=== PATIENT | female | born 1945 | race Caucasian/White ===

== ENCOUNTER 2016-12-26 12:36 | Day surgery (SDC) | payer MEDICARE ==
[2016-12-20 14:54] VITALS: BMI 32.5
[~2016-12-26 12:36] MED LIST: LACTATED RINGERS 1,000 ML IV SCH
[2016-12-26 13:42] VITALS: RESP 18; TEMP 98.3
[2016-12-26] MEDS ORDERED: LIDOCAINE 1% 20 ML VIAL (10MG/ML) FOR IV START INTRADERMA ONE (14:05)
[2016-12-26] MEDS: PHENYLEPHRINE 10% OPHTH DROPS 5 ML BTL OP ONE ×3 (14:13→14:35)
[2016-12-26] MEDS: CYCLOPENTOLATE 1% OPHTH SOLN 2 ML BTL OP ONE ×3 (14:16→14:38)
[2016-12-26] MEDS: FLURBIPROFEN 0.03% OPHTH DROPS 2.5 ML BTL OP ONE ×3 (14:19→14:41)
[2016-12-26] MEDS ORDERED: PROPOFOL 10 MG/ML 20 ML VIAL IV ONE (14:54)
[2016-12-26] MEDS ORDERED: MIDAZOLAM 2 MG/2 ML VIAL ONE (14:54)
[2016-12-26] MEDS ORDERED: EPINEPHrine (PF) 0.5 ML in BALANCED SALT IRRIG SOLN COMB2 500 ML IRRIGATION ONE (14:58)
[2016-12-26] MEDS ORDERED: BALANCED SALT IRRIG SOLN COMB2 15 ML IRRIG.SOLN IRRIGATION ONE (15:01)
[2016-12-26] MEDS ORDERED: HYALURONATE SODIUM INTRAOCULAR 1 EACH SYRINGE (10MG/ML) INTRAOCULA ONE (15:01)
--- NOTE | 2016-12-26 15:10 | P.OP ---
Date of Procedure: 12/26/16 Preoperative Diagnosis: Postoperative Diagnosis: Procedure(s) Performed: PREOPERATIVE DIAGNOSIS: Cataract, left eye. POSTOPERATIVE DIAGNOSIS: Cataract, left eye. OPERATION: Phacoemulsification cataract, left eye. DESCRIPTION OF PROCEDURE: The patient was taken to the preoperative holding area. Intravenous Propofol was given so as to bring about adequate sedation. The following mixture was given for local anesthesia: 5 mL of 2% lidocaine, 5 mL of 0.75% Marcaine, and 1 mL of Wydase. Approximately 4 mL was injected in the retrobulbar space of the surgical eye. Additional 1 mL was then directed to the temporal area of the surgical eye. This was performed to allow adequate neurological block of the facial muscles. The patient was revived and then taken into the operative room. The patient was prepped and draped in the usual sterile manner for the operative eye. A lid speculum was put into position. The conjunctiva was resected back from the limbus in the 12 o'clock position. Bleeding was controlled with electrocautery. A #69 blade was then used and a half-thickness scleral incision approximately 1-mm posterior to the limbus was made on bare sclera. This was shelved in the clear cornea using a crescent knife. Next a 15-degree blade was used to make a stab incision at the 3 o' clock position at the corneolimbal interface. Keratome blade was then used and the superior wound was extended into the anterior chamber. Viscoelastic was injected into the anterior chamber and to maintain its form. Next, a cystotome was used and a continuous anterior capsulotomy was made without difficulty. Hydrodissection using a blunt cannula and BSS was performed. Phaco probe was then employed and a groove extending from 12 to 6 o'clock in the lens was created. A Dionisio wand was used through the stab incision so as to perform a divide and conquer technique. Next an irrigation aspiration probe was utilized and any residual cortex was removed from the eye. Again, viscoelastic was injected into the anterior chamber. An Hai posterior chamber lens implant was placed in the cartridge and injected into the anterior chamber without difficulty. The NanoPowersey hook was utilized to spin the lens into position and this was again performed without any difficulty. The irrigation and aspiration probe was again employed and any residual viscoelastic was removed from the eye. Then BSS was injected into the limbal stab incision and the anterior chamber re-inflated. The conjunctiva was reapproximated using electrocautery. One drop of 0.25% Timoptic was placed over the corneal along with TobraDex ophthalmic ointment. Two sterile patches and a Alvarado eye shield were taped into position. The patient was transported to the recovery room in stable condition. Implants: Pathology: none sent Condition: stable Disposition: same day Indications for Procedure: Operative Findings: Description of Procedure:
[2016-12-26 15:34] VITALS: BP 131/69; PULSE 91
[2016-12-26] MEDS ORDERED: BUPIVACAINE (PF) 0.75% 5 ML, LIDOCAINE 4% (PF) 5 ML, HYALURONIDASE, HUMAN RECOMB 150 UNIT MISCELLANE ONE ×3 (23:00)
[2016-12-26] MEDS ORDERED: TIMOLOL 0.5% OPHTH SOLN (PF) 0.2 ML DROPERETTE OP ONE (23:00)
[2016-12-26] MEDS ORDERED: GENTAMICIN/PREDNISOL AC OPHTH OINT 3.5GM OPHTHALMIC ONE (23:00)
== END 2016-12-26 16:02 | disposition home or self-care (01) ==
LOC: OR 12:36
PROVIDERS: ATTEND Ophthalmology
DX: H25.12 Age-related nuclear cataract, left eye (principal); H35.369 Drusen (degenerative) of macula, unspecified eye; H04.129 Dry eye syndrome of unspecified lacrimal gland; I10 Essential (primary) hypertension; M10.9 Gout, unspecified; E78.5 Hyperlipidemia, unspecified; M19.90 Unspecified osteoarthritis, unspecified site; Z79.899 Other long term (current) drug therapy; Z79.1 Long term (current) use of non-steroidal anti-inflammatories (NSAID); Z88.2 Allergy status to sulfonamides
CPT/HCPCS: 66984; V2632; J2001; J2250; J3470; J0171; J2704

== ENCOUNTER → 2017-01-30 | Outpatient (CLI) | payer MEDICARE ==
--- NOTE | 2017-01-30 07:54 | US ---
EXAMINATION TYPE: US abdomen complete DATE OF EXAM: 01/30/2017 COMPARISON: NONE CLINICAL HISTORY: R10.11 RT upper quadrant pain. Pt states RUQ pain x 3 weeks EXAM MEASUREMENTS: Liver Length: 20.0 cm Gallbladder Wall: 0.2 cm CBD: 0.5 cm Spleen: 12.2 cm Right Kidney: 10.7 x 4.3 x 4.8 cm Left Kidney: 11.0 x 5.8 x 5.4 cm Pancreas: wnl, tail obscured by overlying bowel gas Liver: Enlarged, heterogeneous with cyst right lobe= 3.4 x 2.8 x 2.6 cm Gallbladder: wnl Evidence for sonographic Hillman's sign: Yes CBD: wnl Spleen: wnl Right Kidney: wnl Left Kidney: wnl Upper IVC: wnl Abd Aorta: wnl, distal portion obscured by overlying bowel gas The liver is somewhat heterogenous and enlarged. Simple appearing cyst is noted within the right hepa tic lobe. The intrahepatic portion of the IVC and proximal abdominal aorta are within normal limits. There is no evidence of cholelithiasis. Common bile duct is unremarkable. The visualized portions of the pancreas are homogenous. The spleen is unremarkable. Kidneys are symmetric and free of hydro nephrosis. No renal lesions are seen. IMPRESSION: 1. Probable fatty liver with underlying fatty hepatic infiltration and simple hepatic cyst.
== END | disposition home or self-care (01) ==
LOC: RADUSWWP 07:26
PROVIDERS: ATTEND Internal Medicine
DX: K76.89 Other specified diseases of liver (principal)
CPT/HCPCS: 76700

== ENCOUNTER → 2017-04-10 | Outpatient (CLI) | payer MEDICARE ==
[2017-04-10 12:11] LABS: EKG EKG PERFORMED
[2017-04-10 12:22] LABS: Basophils # (A) 0.1 k/uL (0-0.2); Basophils % (A) 1 %; CH 32.8; CHCM 34.3; Eosinophils # (A) 0.3 k/uL (0-0.7); Eosinophils % (A) 5 %; HCT 42.6 % (34.0-46.0); HDW 3.16; Luc # (Auto) 0.28; Luc % (Auto) 4; Lymphocytes % (A) 31 %; MCH 31.7 pg (25.0-35.0); MCHC 32.9 g/dL (31.0-37.0); MCV 96.4 fL (80.0-100.0); Mean Platelet Volume 6.9; Monocytes # (A) 0.5 k/uL (0-1.0); Monocytes % (A) 8 %; Neutrophils # (A) 3.2 k/uL (1.3-7.7); Neutrophils % (A) 51 %; RBC 4.42 m/uL (3.80-5.40); RDW 13.6 % (11.5-15.5); WBC 6.4 k/uL (3.8-10.6)
[2017-04-10 12:58] LABS: Anion Gap 12 mmol/L; Carbon Dioxide 25 mmol/L (22-30); Chloride 104 mmol/L (98-107); Potassium 4.7 mmol/L (3.5-5.1); Sodium 141 mmol/L (137-145)
== END | disposition home or self-care (01) ==
LOC: LABPAT 12:02
PROVIDERS: ATTEND Orthopaedic Surgery
DX: Z01.810 Encounter for preprocedural cardiovascular examination (principal); Z01.812 Encounter for preprocedural laboratory examination; G56.02 Carpal tunnel syndrome, left upper limb
CPT/HCPCS: 36415; 80051; 85025; 93005

== ENCOUNTER 2017-04-25 11:33 | Day surgery (SDC) | payer MEDICARE ==
[2017-04-20 15:30] VITALS: BMI 32.5
--- NOTE | 2017-04-24 12:28 | HP ---
HISTORY AND PHYSICAL REASON FOR ADMISSION: Surgery is 04/25/2017 HISTORY OF PRESENT ILLNESS: Sandy Lux is a 71-year-old patient seen with symptomatic left carpal tunnel syndrome. After options regarding treatment were discussed with her, she elected to proceed with decompression left median nerve. Consent was obtained. PAST MEDICAL HISTORY: Hypertension, hyperlipidemia, gout and anxiety. PAST SURGICAL HISTORY: Right knee arthroscopy. MEDICATIONS: Lisinopril, simvastatin, Xanax, Zyloprim. ALLERGIES: SULFA. SOCIAL HISTORY: Patient denies current tobacco use. PHYSICAL EXAMINATION: Physical evaluation of the left hand there is good range of motion present of both the wrist and the digits. 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 There is a positive carpal compression, carpal Tinel's causing numbness and tingling into the median nerve distribution. There is a good radial pulse is present. There is good perfusion distally. X-RAYS: Radiographs of the left wrist reveals some osteoarthritic changes. An EMG of left upper extremity revealed carpal tunnel syndrome. IMPRESSION: Left carpal tunnel syndrome. PLAN: Decompression left median nerve. Surgery is 04/25/2017. MMODL / IJN: [id number] /
[~2017-04-25 11:33] MED LIST changes: +DEXAMETHASONE SOD PHOSPHATE 10 MG/ML 1 ML VIAL IV ONE; +HYDROmorphone 0.5 MG/0.5 ML SYRINGE IVP PRN; +ONDANSETRON 4 MG/2 ML VIAL IVP ONE; +ceFAZolin IN SWFI 2 GM/20 ML SYRINGE IVP ONE
[2017-04-25] MEDS ORDERED: LIDOCAINE 1% 20 ML VIAL (10MG/ML) FOR IV START INTRADERMA ONE (12:00)
[2017-04-25 12:03] VITALS: RESP 16; TEMP 98.2
[2017-04-25] MEDS ORDERED: PROPOFOL 10 MG/ML 20 ML VIAL IV ONE (12:51)
[2017-04-25] MEDS ORDERED: MIDAZOLAM 2 MG/2 ML VIAL ONE (12:51)
[2017-04-25] MEDS ORDERED: fentaNYL (PF) 50 MCG/ML 2 ML AMP ONE (12:51)
[2017-04-25] MEDS ORDERED: SODIUM CHLORIDE 0.9% 50 ML with ceFAZolin 2,000 MG IV ONE ×2 (12:55)
[2017-04-25] MEDS ORDERED: BUPIVACAINE (PF) 0.25% 30 ML VIAL SQ ONE ×2 (13:03)
--- NOTE | 2017-04-25 13:20 | P.OP ---
Date of Procedure: 04/25/17 Preoperative Diagnosis: Left carpal tunnel syndrome Postoperative Diagnosis: Left carpal tunnel syndrome Procedure(s) Performed: Decompression left median nerve Implants: None Anesthesia: MAC, local Surgeon: Isaiah Bai Estimated Blood Loss (ml): 0 Pathology: none sent Condition: stable Disposition: PACU Indications for Procedure: 71-year-old patient seen with left carpal tunnel syndrome. After we discussed treatment options, she elected to proceed with decompression left median nerve. Operative Findings: see description of procedure Description of Procedure: The patient was taken to the operative suite. The patient underwent IV sedation by the department of anesthesia. A well-padded tourniquet placed proximal left upper extremity. The left upper extremity was prepped and draped in the normal sterile orthopedic fashion. The patient was given preoperative IV antibiotics. The extremity was elevated and tourniquet insufflated to 250. I infiltrated the proposed incision site with 10 mL quarter percent plain Marcaine. When sufficient local analgesia was noted I made an incision being at the distal volar wrist crease extending distally approximately 3 cm in line with the fourth metacarpal sharply through skin. Dissection was taken down through the palmar fascia to the transverse carpal ligament. I now incised the transverse carpal ligament. I completed the release proximally and distally with blunt Metzenbaums. There was complete release of the transverse carpal ligament and good decompression of the nerve. We had good hemostasis. The skin margins were approximated nylon suture. Sterile dressings were applied followed by loose web bone Mathew bandage. The tourniquet was released with immediate capillary refill of all digits noted. Patient was awakened, transferred to recovery stable condition.
[2017-04-25 14:13] VITALS: BP 129/79; PULSE 102
== END 2017-04-25 14:29 | disposition home or self-care (01) ==
LOC: OR 11:33
PROVIDERS: ATTEND Orthopaedic Surgery
DX: G56.02 Carpal tunnel syndrome, left upper limb (principal); I10 Essential (primary) hypertension; E78.5 Hyperlipidemia, unspecified; G47.33 Obstructive sleep apnea (adult) (pediatric); F41.9 Anxiety disorder, unspecified; F39 Unspecified mood [affective] disorder; M10.9 Gout, unspecified; Z79.899 Other long term (current) drug therapy; Z88.2 Allergy status to sulfonamides; Z87.891 Personal history of nicotine dependence
CPT/HCPCS: 64721; J2250; J1100; J2405; J0690; J3010; J2704

== ENCOUNTER 2018-02-20 10:06 | Emergency (ER) | payer MEDICARE ==
--- NOTE | 2018-02-20 11:07 | ED ---
Chest Pain HPI - General Chief Complaint: Chest Pain Stated Complaint: Chest pain Time Seen by Provider: 02/20/18 10:19 Source: patient, RN notes reviewed Mode of arrival: ambulatory Limitations: no limitations - History of Present Illness Initial Comments: This is a 72-year-old female who presents with complaints of chest pain. She states it feels crampy left-sided chest radiates to her back. He states she has stress test on February 07 which was bad "". She was referred to cardiology she states she came in today because of back pain and chest pain. She does states she tripped and fell yesterday but does not believe this is secondary to that the. Currently she is pain-free but it does get moderate to severe when it does come on. Not associated with deep breathing cough fevers chills sweats or other symptoms MD Complaint: chest pain - Related Data Home Medications Medication Instructions Recorded Confirmed ALPRAZolam [Xanax] 0.125 - 0.25 mg PO BID PRN 12/20/16 02/20/18 Allopurinol [Zyloprim] 150 mg PO DAILY 12/20/16 02/20/18 Lisinopril [Zestril] 10 mg PO DAILY 12/20/16 02/20/18 Simvastatin [Zocor] 20 mg PO Q48H 12/20/16 02/20/18 Aspirin EC [Ecotrin Low Dose] 81 mg PO DAILY PRN 02/20/18 02/20/18 Vitamin E 100 unit PO DAILY 02/20/18 02/20/18 Allergies Allergy/AdvReac Type Severity Reaction Status Date / Time Sulfa (Sulfonamide Allergy Rash/Hives Verified 02/20/18 10:33 Antibiotics) Review of Systems ROS Statement: Those systems with pertinent positive or pertinent negative responses have been documented in the HPI. ROS Other: All systems not noted in ROS Statement are negative. EKG Findings - EKG Results: EKG: interpreted by ERVIN, sinus rhythm (EKG shows normal sinus rhythm a 96. Interval 142 QRS 80 QT since QTC 344/[address]-T wave changes) Past Medical History Past Medical History: Hyperlipidemia, Hypertension, Osteoarthritis (OA) History of Any Multi-Drug Resistant Organisms: None Reported Past Surgical History: Tonsillectomy Additional Past Surgical History / Comment(s): colonoscopy Past Anesthesia/Blood Transfusion Reactions: No Reported Reaction Past Psychological History: Anxiety Smoking Status: Former smoker Past Alcohol Use History: None Reported Past Drug Use History: None Reported - Past Family History Mother Family Medical History: No Reported History Father Family Medical History: Cancer General Exam - General Exam Comments Initial Comments: This is a well-developed well-nourished awake alert oriented 3 female Limitations: no limitations General appearance: alert, in no apparent distress Head exam: Present: atraumatic, normocephalic, normal inspection Eye exam: Present: normal appearance, PERRL, EOMI. Absent: scleral icterus, conjunctival injection, periorbital swelling ENT exam: Present: normal exam, mucous membranes moist Neck exam: Present: normal inspection. Absent: tenderness, meningismus, lymphadenopathy Respiratory exam: Present: normal lung sounds bilaterally. Absent: respiratory distress, wheezes, rales, rhonchi, stridor, chest wall tenderness Cardiovascular Exam: Present: regular rate, normal rhythm, normal heart sounds. Absent: systolic murmur, diastolic murmur, rubs, gallop, clicks GI/Abdominal exam: Present: soft, normal bowel sounds. Absent: distended, tenderness, guarding, rebound, rigid Extremities exam: Present: normal inspection, full ROM, normal capillary refill. Absent: tenderness, pedal edema, joint swelling, calf tenderness Back exam: Present: normal inspection Neurological exam: Present: alert, oriented X3, CN II-XII intact Psychiatric exam: Present: normal affect, normal mood Skin exam: Present: warm, dry, intact, normal color. Absent: rash Course Vital Signs 02/20/18 02/20/18 02/20/18 10:11 13:29 15:30 Temperature 98 F 97.7 F Pulse Rate 90 85 90 Respiratory 16 18 18 Rate Blood Pressure 134/70 133/81 150/74 O2 Sat by Pulse 93 L 94 L 100 Oximetry Chest Pain MDM - MDM Imaging shows no acute findings. I did discuss [employer] the patient CAT scan showed no PE symptoms are suspicious for atypical chest pain facial be admitted with cardiology consultation Critical Care Time Critical Care Time: Yes Critical Care Time: 31 minutes of critical care time which includes initial presentation with history physical labs x-rays reevaluation patient response to therapy and several discussed with the patient documentation the above admission orders Disposition Clinical Impression: Atypical chest pain, Unstable angina pectoris Disposition: ADMITTED IP TO THIS HOSP Condition: Stable Referrals: Ciro Smith MD [Primary Care Provider] - 1-2 days
[2018-02-20 11:19] LABS: Basophils % (A) 1 %; Eosinophils # (A) 0.2 k/uL (0-0.7); Eosinophils % (A) 3 %; HCT 42.9 % (34.0-46.0); HGB 14.2 gm/dL (11.4-16.0); Lymphocytes # (A) 1.5 k/uL (1.0-4.8); Lymphocytes % (A) 27 %; MCH 31.4 pg (25.0-35.0); MCHC 33.1 g/dL (31.0-37.0); MCV 94.8 fL (80.0-100.0); Mean Platelet Volume 6.9; Monocytes # (A) 0.4 k/uL (0-1.0); Monocytes % (A) 6 %; Neutrophils # (A) 3.3 k/uL (1.3-7.7); Neutrophils % (A) 59 %; Platelet Count 237 k/uL (150-450); RBC 4.52 m/uL (3.80-5.40); WBC 5.7 k/uL (3.8-10.6)
--- NOTE | 2018-02-20 11:33 | XR ---
EXAMINATION TYPE: XR chest 2V DATE OF EXAM: 02/20/2018 COMPARISON: None HISTORY: 72-year-old female with chest pain TECHNIQUE: Frontal and lateral views FINDINGS: The cardiomediastinal silhouette, aorta, and pulmonary vasculature are within normal limits. Strandy atelectasis lower lungs. Lungs and pleural spaces are clear. IMPRESSION: Strandy lower lung areas of atelectasis. No acute cardiopulmonary process.
[2018-02-20 11:36] LABS: ALT 158 U/L (9-52); AST 112 U/L (14-36); Albumin 4.6 g/dL (3.5-5.0); Alkaline Phosphatase 52 U/L (38-126); Amylase 58 U/L (30-110); Anion Gap 14 mmol/L; Blood Urea Nitrogen 16 mg/dL (7-17); Calcium 10.9 mg/dL (8.4-10.2); Carbon Dioxide 21 mmol/L (22-30); Chloride 105 mmol/L (98-107); Glucose 125 mg/dL (74-99); Lipase 136 U/L (23-300); Magnesium 1.9 mg/dL (1.6-2.3); Potassium 4.1 mmol/L (3.5-5.1); Sodium 140 mmol/L (137-145); Total Bilirubin 0.5 mg/dL (0.2-1.3); Total Protein 8.4 g/dL (6.3-8.2)
[2018-02-20 11:47] LABS: Creatine Kinase 69 U/L (30-135)
[2018-02-20 12:00] LABS: Creatine Kinase MB 0.8 ng/mL (0.0-2.4); Troponin I <0.012 ng/mL (0.000-0.034)
[2018-02-20 12:11] LABS: D-Dimer 0.85 mg/L FEU (<0.60); Partial Thromboplastin Time 22.2 sec (22.0-30.0)
--- NOTE | 2018-02-20 13:27 | CT ---
EXAMINATION TYPE: CT angio chest DATE OF EXAM: 02/20/2018 COMPARISON: Radiograph same day a correlation ultrasound 01/30/2017 HISTORY: 72-year-old female Chest pain TECHNIQUE: Contiguous axial scanning of the chest performed without and with IV Contrast, patient inj ected with 100 mL of Isovue 370. Coronal/sagittal MIP reconstructions performed. CT DLP: 397.7 mGycm Automated exposure control for dose reduction was used. FINDINGS: Possible 1.9 cm nodule in the left lobe of the thyroid gland. The thyroid gland appears somewhat bulk y and enlarged. Nonemergent follow-up thyroid ultrasound. Left subpectoral lymph node measures 1.3 cm, right subpectoral lymph node measures 1.1 cm. Satisfactory opacification of the pulmonary arterial system without evidence for pulmonary embolus. Mild diffuse bronchial wall thickening and mild dependent atelectasis. No consolidation or pleural ef fusion. Additional scattered small mediastinal lymph nodes are present. There is otherwise no thoracic lympha denopathy by CT size criteria. Small hiatal hernia. 3.4 cm hypodense lesion anterior liver compatible with cysts seen on ultrasound. Bones: No osseous destructive process. IMPRESSION: 1. NO EVIDENCE FOR PULMONARY EMBOLUS. 2. MILD DIFFUSE BRONCHIAL WALL THICKENING COULD REPRESENT BRONCHITIS OR CHRONIC ASTHMA. 3. POSSIBLE 1.9 CM NODULE IN THE LEFT LOBE OF THE THYROID GLAND. NONEMERGENT FOLLOW-UP THYROID ULTRAS OUND TO FURTHER EVALUATE. 4. A PROMINENT SUBPECTORAL LYMPH NODE ON EITHER SIDE MEASURING UP TO 1.3 CM PROBABLY REACTIVE/POST IN FLAMMATORY. CORRELATE WITH ROUTINE SCREENING MAMMOGRAPHY. 5. SMALL HIATAL HERNIA.
[2018-02-20 13:31] VITALS: RESP 18
[2018-02-20] MEDS ORDERED: ASPIRIN 81 MG PO PRN (15:50)
[2018-02-20] MEDS ORDERED: ALPRAZolam 0.25 MG TAB PO PRN (15:50)
[2018-02-20 16:01] VITALS: BP 150/74; PULSE 90; TEMP 97.7
--- NOTE | 2018-02-20 16:04 | P.HPIM ---
History of Present Illness H&P Date: 02/20/18 Chief Complaint: Chest pain This is a 72-year-old female patient of Dr. Smith. Patient presented to the emergency room with complaints of chest pain. Patient stated she fell yesterday while going up steps and landed on the right side of her body. Patient denied hitting her head or loss of consciousness. Patient states that she woke up today with pain that radiated from her left chest to her back on the left side. Patient states she recently had stress test and 2-D echo completed through her primary care provider was post follow-up with Dr. Bennett per cardiology. She has known past medical history of hyperlipidemia, hypertension, osteoarthritis and anxiety. EKG completed showing normal sinus rhythm. Chest x-ray completed showing strandy lower lung areas of atelectasis. No acute cardiopulmonary process. D-dimer elevated at 0.85. CTA completed showing no evidence for pulmonary embolism. Mild diffuse bronchial wall thickening could represent bronchiolitis or chronic asthma. Possible 1.9 from a nodule in the left lower lobe of thyroid gland. Nonemergent. Follow-up thyroid ultrasound to further evaluate. Upon its cell type Toradol lymph node on either side measuring up to 1.3 cm probably reactive/post inflammatory. Correlate with routine screening mammogram. Small hiatal hernia. Liver enzymes also elevated ALT 158 and AST 112. At this time patient denies chest pain or shortness breath. Denies any nausea vomiting or diarrhea. Denies any urinary burning or frequency Review of Systems please refer to HPI otherwise unremarkable Past Medical History Past Medical History: Hyperlipidemia, Hypertension, Osteoarthritis (OA) History of Any Multi-Drug Resistant Organisms: None Reported Past Surgical History: Tonsillectomy Additional Past Surgical History / Comment(s): colonoscopy Past Anesthesia/Blood Transfusion Reactions: No Reported Reaction Past Psychological History: Anxiety Smoking Status: Former smoker Past Alcohol Use History: None Reported Past Drug Use History: None Reported - Past Family History Mother Family Medical History: No Reported History Father Family Medical History: Cancer Medications and Allergies Home Medications Medication Instructions Recorded Confirmed Type ALPRAZolam [Xanax] 0.125 - 0.25 mg PO BID PRN 12/20/16 02/20/18 History Allopurinol [Zyloprim] 150 mg PO DAILY 12/20/16 02/20/18 History Lisinopril [Zestril] 10 mg PO DAILY 12/20/16 02/20/18 History Simvastatin [Zocor] 20 mg PO Q48H 12/20/16 02/20/18 History Aspirin EC [Ecotrin Low Dose] 81 mg PO DAILY PRN 02/20/18 02/20/18 History Vitamin E 100 unit PO DAILY 02/20/18 02/20/18 History Allergies Allergy/AdvReac Type Severity Reaction Status Date / Time Sulfa (Sulfonamide Allergy Rash/Hives Verified 02/20/18 10:33 Antibiotics) Physical Exam Vitals: Vital Signs Temp Pulse Resp BP Pulse Ox 02/20/18 13:29 85 18 133/81 94 L 02/20/18 10:11 98 F 90 16 134/70 93 L Intake and Output 02/20/18 02/20/18 02/20/18 06:59 14:59 22:59 Other: Weight 89.358 kg Head normocephalic Neck supple Lungs clear to auscultation bilaterally no wheezing or crackles Heart regular rate and rhythm S1-S2, no rub or gallop Abdomen is soft nontender nondistended positive bowel sounds no hepatosplenomegaly Extremities no edema Neuro alert and orientated to 3 Results CBC & Chem 7: 02/20/18 10:35 02/20/18 10:35 Labs: Abnormal Lab Results - Last 24 Hours (Table) 02/20/18 02/20/18 Range/Units 10:35 10:35 D-Dimer 0.85 H (<0.60) mg/L FEU Carbon Dioxide 21 L (22-30) mmol/L Glucose 125 H (74-99) mg/dL Calcium 10.9 H (8.4-10.2) mg/dL AST 112 H (14-36) U/L ALT 158 H (9-52) U/L Total Protein 8.4 H (6.3-8.2) g/dL Assessment and Plan Assessment: 1. Chest pain. Initial d-dimer 0.85. CTA completed showing negative for pulmonary embolism. Mild diffuse bronchial wall thickening could represent bronchitis or chronic asthma. Possible 1.9 cm nodule in the left lower lobe of the thyroid gland. Nonemergent follow-up thyroid ultrasound to further evaluate. Prominent subpectorally lymph node on either side measuring up to 1. recent injuries probably reactivepostinflammatory. Correlate with routine screening mammogram. Small hiatal hernia. EKG completed showing normal sinus rhythm. Initial troponin negative. Chest x-ray completed showing stranding lower lobe areas of atelectasis. No acute cardiopulmonary process. Patient recently underwent stress test and 2-D echo by primary care provider. Patient was told she needed to follow up with cardiology due to the results of the test. Patient has not followed up with cardiology yet. Cardiology services will be consulted. Cardiac profile will be ordered 2. Elevated liver enzymes. AST 112 and ALT 158. We'll hold patient's home simvastatin. We'll recheck in a.m. 3. Hyperlipidemia. Simvastatin currently on hold due to elevated liver enzymes 4. Essential hypertension. Continue home medication 5. Osteoarthritis 6. History of anxiety. Continue Xanax when necessary DVT prophylaxis Lovenox GI Prophylaxis Pepcid Time with Patient: Greater than 30 (Greater than 60% of the total time spent in counseling and coordination of care. I performed an examination of the patient and discussed their management with the Nurse Practitioner. I have reviewed the Nurse Practitioner's notes and agree with the documented findings and plan of care)
[2018-02-20] MEDS ORDERED: NITROGLYCERIN SL TABS 0.4 MG TAB SUBLINGUAL PRN (16:29)
[2018-02-21] MEDS ORDERED: ASPIRIN 325 MG TAB PO SCH (09:00)
[2018-02-21] MEDS ORDERED: VITAMIN E (DL,TOCOPHERYL ACET) 400 UNIT CAP PO SCH (09:00)
[2018-02-21] MEDS ORDERED: ENOXAPARIN 40 MG/0.4 ML SYRINGE SQ SCH (09:00)
[2018-02-21] MEDS ORDERED: ALLOPURINOL 300 MG TAB PO SCH (09:00)
[2018-02-21] MEDS ORDERED: LISINOPRIL 10 MG TAB PO SCH (09:00)
[2018-02-21] MEDS ORDERED: FAMOTIDINE 20 MG TAB PO SCH (09:00)
== END 2018-02-20 17:29 | disposition left against medical advice (07) ==
LOC: EC 10:06 → UNDOADMOB 16:29 → 3OBS 16:29 → EC 17:29
DX: I20.0 Unstable angina (principal); E78.5 Hyperlipidemia, unspecified; I10 Essential (primary) hypertension; F41.9 Anxiety disorder, unspecified; R94.5 Abnormal results of liver function studies; M19.90 Unspecified osteoarthritis, unspecified site; Z79.82 Long term (current) use of aspirin; Z79.899 Other long term (current) drug therapy; Z88.2 Allergy status to sulfonamides; Z87.891 Personal history of nicotine dependence
CPT/HCPCS: 99291 ×2; 36415; 93005; 85379; 83880; 80053; 82150; 82550; 82553; 83690; 83735; 84484; 85025; 85610; 85730; 71046; 71275; Q9967

== ENCOUNTER 2018-02-26 06:25 | Day surgery (SDC) | payer MEDICARE ==
[2018-02-22 13:56] VITALS: BMI 34.3
[~2018-02-26 06:25] MED LIST changes: +ALPRAZolam 0.25 MG TAB PO PRN; +ALPRAZolam 0.5 MG TAB PO PRN; +ASPIRIN 325 MG TAB PO STA; +ATORVASTATIN 80 MG TAB PO STA; -DEXAMETHASONE SOD PHOSPHATE 10 MG/ML 1 ML VIAL IV ONE; -HYDROmorphone 0.5 MG/0.5 ML SYRINGE IVP PRN; -LACTATED RINGERS 1,000 ML IV SCH; +NITROGLYCERIN SL TABS 0.4 MG TAB SUBLINGUAL PRN; -ONDANSETRON 4 MG/2 ML VIAL IVP ONE; +SODIUM CHLORIDE 0.9% 1,000 ML in EMPTY BAG 1 BAG IV ONE; -ceFAZolin IN SWFI 2 GM/20 ML SYRINGE IVP ONE
[2018-02-26 07:13] VITALS: RESP 16; TEMP 98.2
[2018-02-26] MEDS ORDERED: SODIUM CHLORIDE 0.9% 1,000 ML IV ONE (07:13)
[2018-02-26] MEDS: MIDAZOLAM 2 MG/2 ML VIAL IV ONE ×2 (07:35→07:50)
[2018-02-26] MEDS ORDERED: LIDOCAINE 1% INJ 10MG/ML (20 ML MDV) SQ ONE ×2 (07:42)
[2018-02-26] MEDS ORDERED: fentaNYL (PF) 50 MCG/ML 2 ML AMP IV ONE (07:43)
[2018-02-26] MEDS ORDERED: IOPAMIDOL-370 125ML BTL INJ ONE (08:01)
[2018-02-26] MEDS ORDERED: RX INFO: IV CONTRAST WAS GIVEN 1 EACH MISC MISCELLANE PRN (08:12)
--- NOTE | 2018-02-26 08:54 | CC ---
CARDIAC CATHETERIZATION REPORT INDICATION: Shortness of breath with abnormal stress echo. The patient had extremely poor exercise tolerance and had EKG changes and abnormal baseline echo. PROCEDURE NOTE: After obtaining informed consent, left heart catheterization and coronary angiogram are performed via the right femoral artery using standard Shanthi catheters. Patient tolerated the procedure well without any obvious immediate complications. We made 3 attempts at vascular access; hence we decided for manual hemostasis. Patient received moderate conscious sedation. The total sedation time was 20 minutes. FINDINGS: 1. HEMODYNAMICS: Left ventricular end-diastolic pressure is 16 to 18 mm. There is no significant gradient across the aortic valve. 2. LEFT VENTRICULOGRAM: Left ventriculogram is not performed. 3. ANGIOGRAPHIC DATA: 4. Left main coronary artery: Left main coronary artery is a normal-sized vessel and is free of stenosis. Divides into left anterior descending coronary artery and circumflex coronary artery. LAD and its branches are free of significant stenosis. Circumflex coronary artery is a large codominant vessel. Both the circumflex and OM branches are free of significant stenosis. Right coronary artery is a large dominant vessel and is free of significant disease. CONCLUSIONS: 1. Normal coronary arteries. 2. Normal left ventricular end-diastolic pressure. 3. The patient's abnormal stress test is probably a false-positive stress test. Management is going to be in the form of risk factor modification, optimal medical therapy. MMODL / IJN: [id number] /
[2018-02-26 12:16] VITALS: PULSE 85
[2018-02-26 14:05] VITALS: BP 120/56
== END 2018-02-26 16:00 | disposition home or self-care (01) ==
LOC: CATHCVL 06:25
PROVIDERS: ATTEND Internal Medicine Cardiovascular Disease
DX: I10 Essential (primary) hypertension (principal); E78.5 Hyperlipidemia, unspecified; Z72.0 Tobacco use; Z88.2 Allergy status to sulfonamides; Z79.899 Other long term (current) drug therapy
CPT/HCPCS: 93458; C1894; C1769; J2250; J2001; J3010; Q9967

== ENCOUNTER → 2018-07-19 | Outpatient (CLI) | payer MEDICARE | END | disposition home or self-care (01) | LOC: LABPAT 12:33 | PROVIDERS: ATTEND Orthopaedic Surgery | DX: Z01.812 Encounter for preprocedural laboratory examination (principal) | CPT/HCPCS: 87070 ==

== ENCOUNTER → 2018-07-31 | Outpatient (CLI) | payer MEDICARE ==
[2018-07-31 11:40] LABS: Partial Thromboplastin Time 24.1 sec (22.0-30.0); Prothrombin Time 10.3 sec (9.0-12.0)
== END | disposition home or self-care (01) ==
LOC: LABPAT 10:24
PROVIDERS: ATTEND Orthopaedic Surgery
DX: Z01.812 Encounter for preprocedural laboratory examination (principal); M17.11 Unilateral primary osteoarthritis, right knee; Z79.01 Long term (current) use of anticoagulants
CPT/HCPCS: 36415; 85610; 85730

== ENCOUNTER 2018-08-05 10:00 | Inpatient (IN) | payer MEDICARE ==
--- NOTE | 2018-08-04 17:08 | HP ---
HISTORY AND PHYSICAL Surgery is 08/05/2018. Sandy Lux is a 72-year-old patient seen with symptomatic right knee osteoarthritis. After having treatment options discussed, she elected to proceed with right total knee arthroplasty. Consent regarding the procedure was obtained. Medical clearance was provided by Dr. Smith. Cardiac clearance by Dr. Mcmillan. PAST MEDICAL HISTORY: Hypertension, hyperlipidemia, gout. PAST SURGICAL HISTORY: Right knee arthroscopy. DAILY MEDICATIONS: Allopurinol, ibuprofen, lisinopril, simvastatin, Xanax. ALLERGIES: SULFA. SOCIAL HISTORY: She denies current tobacco use. PHYSICAL EXAMINATION: Evaluation of the right knee: Range of motion is -2/3 to 110 degrees. Tenderness medial joint line. Crepitus medial patellofemoral compartments range of motion. Ligaments stable. Hip rotation without pain. Distal neurovascular exam is intact. RADIOGRAPHS: Radiographs of the right knee revealed severe medial moderate patellofemoral compartment osteoarthritis. IMPRESSION: 1. Right knee osteoarthritis. 2. Hypertension. 3. Hyperlipidemia. PLAN: Right total knee arthroplasty. MMODL / IJN: [id number] /
[~2018-08-05 10:00] MED LIST changes: +ACETAMINOPHEN TAB 500 MG TAB PO ONE; -ALPRAZolam 0.25 MG TAB PO PRN; -ALPRAZolam 0.5 MG TAB PO PRN; -ASPIRIN 325 MG TAB PO STA; -ATORVASTATIN 80 MG TAB PO STA; +DEXAMETHASONE SOD PHOSPHATE 10 MG/ML 1 ML VIAL IV ONE; +LIDOCAINE 1% 20 ML VIAL (10MG/ML) FOR IV START INTRADERMA PRN; +MELOXICAM 7.5 MG TAB PO ONE; +MIDAZOLAM (PF) 2 MG/2 ML VIAL IV PRN; -NITROGLYCERIN SL TABS 0.4 MG TAB SUBLINGUAL PRN; +ONDANSETRON 4 MG/2 ML VIAL IVP ONE; -SODIUM CHLORIDE 0.9% 1,000 ML in EMPTY BAG 1 BAG IV ONE; +TRANEXAMIC ACID 1,000 MG in SODIUM CHLORIDE 0.9% 100 ML IVPB ONE; +ceFAZolin IN SWFI 2 GM/20 ML SYRINGE IVP ONE; +fentaNYL (PF) 50 MCG/ML 2 ML AMP IV PRN
[2018-08-05] MEDS: LACTATED RINGERS 1,000 ML IV SCH ×3 (11:19→19:37)
[2018-08-05 11:23] LABS: Glucose,Whole Blood 120 mg/dL (75-99)
[2018-08-05] MEDS ORDERED: MIDAZOLAM 2 MG/2 ML VIAL IV ONE (11:47)
[2018-08-05] MEDS ORDERED: ROPIVACAINE 246.25 MG, EPINEPHrine 0.5 MG, KETOROLAC 30 MG, cloNIDine HCL/PF 80 MCG, WA... MISCELLANE ONE ×5 (12:00)
[2018-08-05] MEDS ORDERED: SODIUM CHLORIDE 0.9% 100 ML BAG ONE (12:25)
[2018-08-05] MEDS ORDERED: fentaNYL (PF) 50 MCG/ML 2 ML AMP ONE (12:25)
[2018-08-05] MEDS ORDERED: PROPOFOL 10 MG/ML 20 ML VIAL IV ONE (12:25)
[2018-08-05] MEDS ORDERED: MIDAZOLAM 2 MG/2 ML VIAL ONE (12:25)
[2018-08-05] MEDS ORDERED: TRANEXAMIC ACID 1,000 MG/10 ML VIAL ONE (12:25)
[2018-08-05] MEDS ORDERED: ceFAZolin 3,000 MG in SODIUM CHLORIDE 0.9% IRRIGATIO 3,000 ML IRRIGATION ONE (12:30)
[2018-08-05] MEDS ORDERED: LACTATED RINGERS 1,000 ML IV ONE ×2 (13:05→18:42)
[2018-08-05] MEDS ORDERED: HYDROmorphone 0.5 MG/0.5 ML SYRINGE IVP PRN ×3 (14:14)
[2018-08-05] MEDS ORDERED: NALOXONE 0.4 MG/ML 1 ML VIAL IV PRN (14:14)
[2018-08-05] MEDS ORDERED: HYDROcodone/APAP 5-325MG 1 EACH TAB PO PRN (14:14)
--- NOTE | 2018-08-05 14:14 | P.OP ---
Date of Procedure: 08/05/18 Preoperative Diagnosis: Right knee osteoarthritis Postoperative Diagnosis: Right knee osteoarthritis Procedure(s) Performed: Right total knee arthroplasty Implants: 1. Microport evolution size 3 right CR cemented femur 2. Microport evolution size 3 right cemented tibial baseplate 3. Microport evolution size 3 right 12 mm MP/CS polyethylene tibial insert 4. Microport advance 32 mm all polyethylene cemented patella Anesthesia: regional (Adductor canal catheter), local, spinal Surgeon: Isaiah Bai Optomechanical Technician #1: Domo Cordon Estimated Blood Loss (ml): 50 Pathology: other (Bone) Condition: stable Disposition: PACU Indications for Procedure: 72-year-old patient seen with symptomatic right knee osteoarthritis. After treatment options were discussed, she elected to proceed with total knee arthroplasty Operative Findings: See description of procedure Description of Procedure: Patient was taken to the operative suite after having an adductor canal catheter placed by the department of anesthesia. Patient underwent a spinal anesthetic by the department of anesthesia. Patient was given preoperative IV intake antibiotics and TXA. A well-padded tourniquet was placed about the right lower extremity. The lower extremity was then prepped and draped in the normal sterile orthopedic fashion. The extremity was elevated, a tourniquet was insufflated to 300. A standard anterior incision was made sharply through skin. Dissection was taken down through the subcutaneous soft tissues down to the extensor mechanism. A medial arthrotomy was performed, patella was everted and knee was flexed. There was advanced osteoarthritis noted. I introduced my distal intramedullary femoral drill. I then introduced the distal femoral cutting jig. Tani CARMONA secured the cutting jig with 2 pins. I held retractors in position while Tani CARMONA performed the distal femoral resection through the guide area we now removed her distal femoral cutting guide. We now placed our 4-in-1 femoral cutting block and positioned and it was secured with 2 pins by Tani CARMONA while I held the block in position. The distal femoral finishing was now completed. A proximal tibial cutting guide was positioned. I held the guide in the appropriate position with both hands well Tani CARMONA inserted stabilizing pins into the guide. Proximal tibial cut was made. We now placed a trial femoral component into position, along with an appropriate size tibial tray and insert. We now took the knee through range of motion and had full extension good flexion and good overall soft tissue balance noted. The patella was everted and stabilized with 2 towel clips held by Tani CARMONA while I performed a flush with patellar quad tendon utilizing a fresh sawblade. We templated the patella, appropriate drill holes were made. An appropriate trial patella was positioned, knee was taken through full range of motion with the patella tracking very nicely. The trial patella was removed. Drill holes were made through the femoral component. All trial components were removed after marking off the appropriate rotation of the tibia. Retractors were now positioned along the proximal tibia. An appropriate keel punch was made with the appropriate size tibial guide by myself on Tani CARMONA assisted by holding retractors. At this point appropriate size implants were chosen and opened. The joint was irrigated copiously with pulse lavage mechanical irrigation. The posterior capsule was infiltrated with local analgesic. The wound was irrigated with pulse lavage mechanical irrigation. We mixed antibiotic methylmethacrylate. We placed the knee into flexion. We placed multiple retractors assisted by Tani CARMONA to expose the proximal tibia. Once the methyl methacrylate was ready, the tibial component was cemented into place removing any excess methylmethacrylate form by both myself and Tani CARMONA. The femoral component was cemented into place removing the removing any excess methylmethacrylate performed by both myself and Tani CARMONA. We then inserted the appropriate size polyethylene tibial insert. We made sure that it was locked into position. We took the knee into full extension, and then back in a flexion making sure we had removed any excess methylmethacrylate. The patellar component was then cemented down and secured with clamp. Excess methylmethacrylate removed. We kept the knee in full extension, patellar clamp in position until methylmethacrylate had hardened. Once it had hardened the patellar clamp was removed. The knee was taken through full range of motion. The patella tracked nicely. There was good soft tissue balancing. The tourniquet was now released. Additional hemostasis was achieved via electrocautery. A second gram of TXA was given. The wound again was irrigated with pulse lavage mechanical irrigation. The superficial soft tissues were infiltrated local analgesic. The extensor mechanism was repaired with Vicryl. We checked the repair with range of motion and it was stable. The subcutaneous soft tissues were repaired with Vicryl in layers. The skin was approximated with pernio/Dermabond. Sterile dressings were applied followed by loose web roll and Mathew bandage. The patient was transferred to a bed, and taken to recovery in stable and satisfactory condition. Tani CARMONA assisted with this complex procedure.
[2018-08-05] MEDS ORDERED: diphenhydrAMINE 50 MG/ML 1 ML VIAL IVP ONE (14:27)
[2018-08-05] MEDS ORDERED: ROPIVACAINE 1,100 MG, SODIUM CHLORIDE 0.9% 500 ML 330 ML MISCELLANE PRN ×2 (14:46)
--- NOTE | 2018-08-05 14:55 | XR ---
EXAMINATION TYPE: XR knee limited RT DATE OF EXAM: 08/05/2018 COMPARISON: NONE HISTORY: 72-year-old female evaluation for postoperative abnormality and alignment TECHNIQUE: 2 views FINDINGS: Images show placement of right total knee arthroplasty. Both distal femoral and proximal tibial compo nents of the prosthesis are well seated without periprosthetic fracture. Alignment grossly anatomic. Anterior soft tissue swelling with soft tissue air as well as intra-articular air and joint fluid com patible with recent operation. IMPRESSION: Uncomplicated postoperative appearance right total knee arthroplasty.
[2018-08-05] MEDS ORDERED: ONDANSETRON 4 MG/2 ML VIAL IVP ONE (16:55)
[2018-08-05] MEDS ORDERED: HYDROmorphone 1 MG/ML 1 ML SYRINGE IVP ONE ×2 (16:58→18:16)
[2018-08-05 20:41] VITALS: BMI 34.1
[2018-08-05] MEDS: SENNOSIDES-DOCUSATE SODIUM 1 EACH TAB PO SCH (22:16)
[2018-08-05] MEDS: ceFAZolin IN SWFI 2 GM/20 ML SYRINGE IVP SCH (22:28)
[2018-08-05] MEDS ORDERED: ZOLPIDEM 5 MG TAB PO PRN (22:34)
[2018-08-05] MEDS: ALPRAZolam 0.25 MG TAB PO PRN (23:20)
[2018-08-06] MEDS: LACTATED RINGERS 1,000 ML IV SCH ×3 (00:26→19:59)
[2018-08-06] MEDS: ceFAZolin IN SWFI 2 GM/20 ML SYRINGE IVP SCH (04:11)
[2018-08-06 08:06] LABS: Basophils % (A) 0 %; Eosinophils # (A) 0.1 k/uL (0-0.7); Eosinophils % (A) 1 %; HCT 34.3 % (34.0-46.0); HGB 11.4 gm/dL (11.4-16.0); Lymphocytes # (A) 1.8 k/uL (1.0-4.8); Lymphocytes % (A) 20 %; MCH 32.4 pg (25.0-35.0); MCHC 33.1 g/dL (31.0-37.0); MCV 97.9 fL (80.0-100.0); Mean Platelet Volume 7.2; Monocytes # (A) 0.5 k/uL (0-1.0); Monocytes % (A) 6 %; Neutrophils # (A) 6.7 k/uL (1.3-7.7); Neutrophils % (A) 72 %; Platelet Count 172 k/uL (150-450); RBC 3.51 m/uL (3.80-5.40); RDW 14.3 % (11.5-15.5); WBC 9.3 k/uL (3.8-10.6)
[2018-08-06] MEDS ORDERED: NON-FORMULARY DRUG (Vitamin B Complex [Vitamin B Complex] 1 CAP) PO SCH (09:00)
[2018-08-06] MEDS: HYDROcodone/APAP 5-325MG 1 EACH TAB PO PRN ×3 (09:43→21:32)
[2018-08-06] MEDS: MELOXICAM 7.5 MG TAB PO SCH (09:44)
[2018-08-06] MEDS: ENOXAPARIN 30 MG/0.3 ML SYRINGE SQ SCH ×2 (09:45→20:40)
[2018-08-06] MEDS: LISINOPRIL 10 MG TAB PO SCH (09:45)
[2018-08-06] MEDS: ALLOPURINOL 300 MG TAB PO SCH (09:45)
[2018-08-06] MEDS: VITAMIN E (DL,TOCOPHERYL ACET) 400 UNIT CAP PO SCH (09:46)
--- NOTE | 2018-08-06 10:58 | P.PN ---
Progress Note - Text Progress Note Date: 08/06/18 The patient is status post right adductor canal catheter placement. The catheter was placed for postoperative pain control, status post total [Right Knee] arthroplasty. Ropivacaine 0.2% is infusing at[ 5] mLs per hour. The patient has no complaints of[ I] lower extremity numbness or weakness. Patient 's VAS score is[ 4]-10. Assessment: Patient's adductor canal catheter is in place and working appropriately. Plan: continue infusion and adjust it as needed.
--- NOTE | 2018-08-06 11:13 | P.ONQ ---
Anesthesiology Proc Note - PNB - Peripheral Nerve Block Performed Right Adductor Canal Infusion Time Out Performed: Yes Procedure Start Time: 11:48 Procedure Stop Time: 11:57 Indication: Acute Post-Operative Pain, Requested by physician Sedation Type: Awake Preparation: Sterile Prep Needle Size: 50mm (2") Needle Gauge: 21 Technique: Ultrasound (ropi .5% 20cc) Blood Aspirated: No Pain Paresthesia on Injection Noted: No Resistance on Injection: Normal Events: Uneventful and Well Tolerated
[2018-08-06] MEDS: ALPRAZolam 0.25 MG TAB PO PRN ×2 (13:45→20:40)
--- NOTE | 2018-08-06 13:53 | P.PN ---
Subjective Progress Note Date: 08/06/18 Principal diagnosis: s/p right tka Patient evaluated at bedside, no acute complaints. Slight increase in pain involving knee. No chest pain or shortness of breath Objective - Vital Signs Vital signs: Vital Signs Temp 97.5 F L 08/06/18 07:00 Pulse 75 08/06/18 07:00 Resp 18 08/06/18 07:00 BP 145/80 08/06/18 07:00 Pulse Ox 98 08/06/18 07:00 Intake & Output 08/05/18 08/06/18 08/06/18 18:59 06:59 18:59 Intake Total 2000 300 450 Output Total 50 450 Balance 1951 -150 450 Intake: IV 2000 Intake, IV Titration 100 Amount Lactated Ringers 1,000 ml 100 @ 100 mls/hr IV .Q10H JOSE Rx#:[id number] Oral 200 450 Output: Urine 450 Estimated Blood Loss 50 Other: # Voids 1 - Exam Right lower extremity: Incision clean and dry. Distal neurovascular exam intact. Calf is soft, no tenderness with palpation - Labs CBC & Chem 7: 08/06/18 07:14 Labs: Abnormal Lab Results - Last 24 Hours (Table) 08/06/18 Range/Units 07:14 RBC 3.51 L (3.80-5.40) m/uL Assessment and Plan Plan: Post op day #1 s/p right tka Pain control, continue current medication DVT prophylaxis, continue current medication Ice and elevate often Continue work with PT and use of CPM Medical recommendations Possible dc to rehab, will re evaluate tomorrow Time with Patient: Less than 30
--- NOTE | 2018-08-06 14:49 | P.CONS ---
History of Present Illness - Reason for Consult Consult date: 08/06/18 Medical management Requesting physician: Isaiah Bai - Chief Complaint Left total knee arthroplasty - History of Present Illness This is a 72-year-old female with a known past medical history of hypertension, hyperlipidemia, borderline diabetic and osteoarthritis. Patient underwent right total knee arthroplasty with Dr. Bai yesterday on August 05. She tolerated the surgery well. Estimated blood loss 50 mL. Patient is complaining of knee pain today. And they're planning discharged possibly [facility]. Patient denies any chest pain or shortness of breath. She denies any nausea or vomiting. Denies any bowel movement changes or urinary symptoms. We' ve been consulted for medical management. Medications have been reviewed. Also note the patient had heart catheterization February 2018 at that time normal coronary arteries reported Review of Systems Please refer to HPI otherwise unremarkable Past Medical History Past Medical History: Hyperlipidemia, Hypertension, Osteoarthritis (OA), Rheumatoid Arthritis (RA) Additional Past Medical History / Comment(s): palpitations, recent fall, recent "bad stress test", SOB, elevated liver enzymes, high uric acid, high triglycerides, EC at [facility] 02/20/18 with "chest spasms" History of Any Multi-Drug Resistant Organisms: None Reported Past Surgical History: Heart Catheterization, Orthopedic Surgery, Tonsillectomy Additional Past Surgical History / Comment(s): arthroscopy rt knee, left carpal tunnel, left cataract Past Anesthesia/Blood Transfusion Reactions: No Reported Reaction Past Psychological History: Anxiety Smoking Status: Former smoker Past Alcohol Use History: Occasional Additional Past Alcohol Use History / Comment(s): quit smoking 35 yrs ago, smoked for 10 yrs, < 1PPD Past Drug Use History: Marijuana Additional Drug Use History / Comment(s): past use, has card - Past Family History Mother Family Medical History: No Reported History Father Family Medical History: Cancer Medications and Allergies Home Medications Medication Instructions Recorded Confirmed Type ALPRAZolam [Xanax] 0.125 - 0.25 mg PO TID 12/20/16 08/05/18 History Allopurinol [Zyloprim] 150 mg PO DAILY 12/20/16 08/05/18 History Lisinopril [Zestril] 10 mg PO DAILY 12/20/16 08/05/18 History Simvastatin [Zocor] 20 mg PO Q48H 12/20/16 08/05/18 History Vitamin E 400 unit PO DAILY 02/20/18 08/05/18 History Glucosamine/Chondr [place] A Sod [Osteo 1 tab PO DAILY 07/29/18 08/05/18 History Bi-Flex Caplet] Krill/Om-3/Dha/Epa/Phospho/Ast 1 cap PO DAILY 07/29/18 08/05/18 History [[place]-3 Krill Oil 300 mg Sfgl] Vitamin B Complex 1 cap PO DAILY 07/29/18 08/05/18 History Allergies Allergy/AdvReac Type Severity Reaction Status Date / Time Sulfa (Sulfonamide Allergy Rash/Hives Verified 08/05/18 18:43 Antibiotics) Physical Exam Vitals: Vital Signs Temp Pulse Pulse Resp BP Pulse Ox 08/06/18 07:00 97.5 F L 75 18 145/80 98 08/06/18 00:04 16 08/05/18 23:42 97.8 F 95 16 135/79 96 08/05/18 20:03 98.7 F 66 16 132/76 98 08/05/18 19:36 98.7 F 66 16 132/76 98 08/05/18 18:45 96 16 133/80 95 08/05/18 18:00 100 16 134/73 94 L 08/05/18 17:30 90 16 136/72 94 L 08/05/18 16:45 95 18 132/85 95 08/05/18 16:15 94 16 112/62 94 L 08/05/18 16:00 95 16 116/61 92 L 08/05/18 15:45 94 16 121/60 95 08/05/18 15:30 96 16 119/56 95 08/05/18 15:22 95 16 119/55 96 08/05/18 14:52 96 16 123/58 99 Intake and Output 08/05/18 08/06/18 08/06/18 22:59 06:59 14:59 Intake Total 950 450 Output Total 450 Balance 500 450 Intake: IV 650 Intake, IV Titration 100 Amount Lactated Ringers 1,000 ml 100 @ 100 mls/hr IV .Q10H JOSE Rx#:[id number] Oral 200 450 Output: Urine 450 Other: # Voids 1 2 Head normocephalic Neck supple Lungs clear to auscultation bilaterally no wheezing or crackles Heart regular rate and rhythm S1-S2, no rub or gallop Abdomen is soft nontender nondistended positive bowel sounds no hepatosplenomegaly Extremities no edema. Right knee dressing clean dry and intact has pain pump in place Neuro alert and orientated to 3 Results CBC & Chem 7: 08/06/18 07:14 Labs: Abnormal Lab Results - Last 24 Hours (Table) 08/06/18 Range/Units 07:14 RBC 3.51 L (3.80-5.40) m/uL Assessment and Plan Assessment: 1. Osteoarthritis of right knee: Status post right total knee arthroplasty. Continue pain control per orthopedics. Continue DVT prophylaxis with Lovenox. Patient will possibly discharged to [facility]. She requires a three-day hospitalization before she can be discharged to [facility] 2. Essential hypertension: Continue lisinopril 3. Diabetes mellitus type 2: Diet controlled. Check hemoglobin A1c. Add NovoLog sliding scale coverage 4. Hyperlipidemia continue statin GI prophylaxis Pepcid and DVT prophylaxis Lovenox Check routine CBC and CMP in a.m. Thank you for this consultation. We will continue to follow along during patient's hospitalization Time with Patient: Greater than 30 (Greater than 50% of the total time spent in counseling and coordination of care.I performed an examination of the patient and discussed their management with the physician Dry End Operator. I have reviewed the Physician Dry End Operator's notes and agree with the documented findings and plan of care)
[2018-08-06 17:29] LABS: Glucose,Whole Blood 128 mg/dL (75-99)
[2018-08-06] MEDS: INSULIN ASPART (NovoLOG) 100 UNIT/ML VIAL SQ SCH ×2 (17:49→20:32)
[2018-08-06] MEDS: ONDANSETRON 4 MG/2 ML VIAL IVP PRN (17:52)
[2018-08-06 20:33] LABS: Glucose,Whole Blood 109 mg/dL (75-99)
[2018-08-06] MEDS: ATORVASTATIN 10 MG TAB PO SCH (20:40)
[2018-08-06] MEDS: SENNOSIDES-DOCUSATE SODIUM 1 EACH TAB PO SCH (20:40)
[2018-08-07] MEDS: HYDROcodone/APAP 5-325MG 1 EACH TAB PO PRN ×2 (03:07→10:58)
[2018-08-07] MEDS: LACTATED RINGERS 1,000 ML IV SCH ×2 (05:19→18:11)
[2018-08-07 07:10] LABS: Basophils # (A) 0.1 k/uL (0-0.2); Basophils % (A) 1 %; Eosinophils # (A) 0.2 k/uL (0-0.7); Eosinophils % (A) 3 %; HCT 33.7 % (34.0-46.0); HGB 10.8 gm/dL (11.4-16.0); Lymphocytes # (A) 1.4 k/uL (1.0-4.8); Lymphocytes % (A) 22 %; MCH 31.9 pg (25.0-35.0); MCV 99.5 fL (80.0-100.0); Macrocytosis Slight; Mean Platelet Volume 6.7; Monocytes # (A) 0.5 k/uL (0-1.0); Monocytes % (A) 7 %; Neutrophils # (A) 4.3 k/uL (1.3-7.7); Neutrophils % (A) 66 %; Platelet Count 174 k/uL (150-450); RBC 3.39 m/uL (3.80-5.40); RDW 14.5 % (11.5-15.5); WBC 6.6 k/uL (3.8-10.6)
[2018-08-07 07:18] LABS: Glucose,Whole Blood 128 mg/dL (75-99)
[2018-08-07 07:23] LABS: ALT 45 U/L (9-52); AST 23 U/L (14-36); Albumin 3.3 g/dL (3.5-5.0); Alkaline Phosphatase 41 U/L (38-126); Anion Gap 5 mmol/L; Blood Urea Nitrogen 13 mg/dL (7-17); Calcium 8.9 mg/dL (8.4-10.2); Carbon Dioxide 27 mmol/L (22-30); Chloride 109 mmol/L (98-107); Glucose 121 mg/dL (74-99); Sodium 141 mmol/L (137-145); Total Bilirubin 0.4 mg/dL (0.2-1.3); Total Protein 6.1 g/dL (6.3-8.2)
[2018-08-07] MEDS: INSULIN ASPART (NovoLOG) 100 UNIT/ML VIAL SQ SCH ×4 (09:55→20:35)
[2018-08-07] MEDS: ALLOPURINOL 300 MG TAB PO SCH (10:51)
[2018-08-07] MEDS: FAMOTIDINE 20 MG TAB PO SCH (10:51)
[2018-08-07] MEDS: MELOXICAM 7.5 MG TAB PO SCH (10:52)
[2018-08-07] MEDS: VITAMIN E (DL,TOCOPHERYL ACET) 400 UNIT CAP PO SCH (10:57)
--- NOTE | 2018-08-07 10:57 | P.PN ---
Subjective Progress Note Date: 08/07/18 This is a 72-year-old female with a known past medical history of hypertension, hyperlipidemia, borderline diabetic and osteoarthritis. Patient underwent right total knee arthroplasty with Dr. Bai yesterday on August 05. She tolerated the surgery well. Estimated blood loss 50 mL. Patient is complaining of knee pain today. And they're planning discharged possibly [facility]. Patient denies any chest pain or shortness of breath. She denies any nausea or vomiting. Denies any bowel movement changes or urinary symptoms. We' ve been consulted for medical management. Medications have been reviewed. Also note the patient had heart catheterization February 2018 at that time normal coronary arteries reported on 08/07/2018 patient remains alert and oriented 3. Patient is currently experiencing pain to right knee. Denies any other symptoms at this time. Patient denies chest pain or shortness breath. Patient denies nausea vomiting or diarrhea. Patient encouraged to ask for pain meds as needed to control pain. Objective - Vital Signs Vital signs: Vital Signs Temp 98.9 F 08/07/18 07:00 Pulse 98 08/07/18 07:00 Resp 16 08/07/18 07:00 BP 126/69 08/07/18 07:00 Pulse Ox 98 08/07/18 07:00 Intake & Output 08/06/18 08/07/18 08/07/18 18:59 06:59 18:59 Intake Total 450 590 236 Balance 450 590 236 Intake: Oral 450 590 236 Other: # Voids 2 1 - Exam Head normocephalic Neck supple Lungs clear to auscultation bilaterally no wheezing or crackles Heart regular rate and rhythm S1-S2, no rub or gallop Abdomen is soft nontender nondistended positive bowel sounds no hepatosplenomegaly Extremities no edema. Right knee dressing clean dry and intact has pain pump in place Neuro alert and orientated to 3 - Labs CBC & Chem 7: 08/07/18 06:14 08/07/18 06:14 Labs: Abnormal Lab Results - Last 24 Hours (Table) 08/06/18 08/06/18 08/07/18 Range/Units 17:03 20:22 06:14 RBC 3.39 L (3.80-5.40) m/uL Hgb 10.8 L (11.4-16.0) gm/dL Hct 33.7 L (34.0-46.0) % Chloride (98-107) mmol/L Glucose (74-99) mg/dL POC Glucose (mg/dL) 128 H 109 H (75-99) mg/dL Total Protein (6.3-8.2) g/dL Albumin (3.5-5.0) g/dL 08/07/18 08/07/18 Range/Units 06:14 07:07 RBC (3.80-5.40) m/uL Hgb (11.4-16.0) gm/dL Hct (34.0-46.0) % Chloride 109 H (98-107) mmol/L Glucose 121 H (74-99) mg/dL POC Glucose (mg/dL) 128 H (75-99) mg/dL Total Protein 6.1 L (6.3-8.2) g/dL Albumin 3.3 L (3.5-5.0) g/dL Assessment and Plan Assessment: 1. Osteoarthritis of right knee: Status post right total knee arthroplasty. Continue pain control per orthopedics. Continue DVT prophylaxis with Lovenox. Patient will possibly discharged to [facility]. She requires a three-day hospitalization before she can be discharged to [facility]. pain meds per or orthoservices 2. Essential hypertension: Continue lisinopril 3. Diabetes mellitus type 2: Diet controlled. Check hemoglobin A1c. Add NovoLog sliding scale coverage 4. Hyperlipidemia continue statin 5. Anemia. Will order iron studies GI prophylaxis Pepcid and DVT prophylaxis Lovenox thank you for this consultation we will continue to follow patient closely throughout stay
[2018-08-07] MEDS: ENOXAPARIN 30 MG/0.3 ML SYRINGE SQ SCH ×2 (10:58→20:33)
[2018-08-07] MEDS: LISINOPRIL 10 MG TAB PO SCH (10:58)
[2018-08-07 12:19] LABS: Glucose,Whole Blood 149 mg/dL (75-99)
[2018-08-07] MEDS: ALPRAZolam 0.25 MG TAB PO PRN (14:05)
--- NOTE | 2018-08-07 14:09 | P.PN ---
Subjective Progress Note Date: 08/07/18 Principal diagnosis: s/p right tka Patient evaluated at bedside, no acute complaints. Slight increase in pain involving knee. No chest pain or shortness of breath Objective - Vital Signs Vital signs: Vital Signs Temp 98.9 F 08/07/18 07:00 Pulse 98 08/07/18 07:00 Resp 16 08/07/18 07:00 BP 126/69 08/07/18 07:00 Pulse Ox 98 08/07/18 07:00 Intake & Output 08/06/18 08/07/18 08/07/18 18:59 06:59 18:59 Intake Total 450 590 656 Balance 450 590 656 Intake: Oral 450 590 656 Other: # Voids 2 1 - Exam Right lower extremity: Incision clean and dry. Distal neurovascular exam intact. Calf is soft, no tenderness with palpation - Labs CBC & Chem 7: 08/07/18 06:14 08/07/18 06:14 Labs: Abnormal Lab Results - Last 24 Hours (Table) 08/06/18 08/06/18 08/07/18 Range/Units 17:03 20:22 06:14 RBC 3.39 L (3.80-5.40) m/uL Hgb 10.8 L (11.4-16.0) gm/dL Hct 33.7 L (34.0-46.0) % Chloride (98-107) mmol/L Glucose (74-99) mg/dL POC Glucose (mg/dL) 128 H 109 H (75-99) mg/dL Total Protein (6.3-8.2) g/dL Albumin (3.5-5.0) g/dL 08/07/18 08/07/18 08/07/18 Range/Units 06:14 07:07 12:07 RBC (3.80-5.40) m/uL Hgb (11.4-16.0) gm/dL Hct (34.0-46.0) % Chloride 109 H (98-107) mmol/L Glucose 121 H (74-99) mg/dL POC Glucose (mg/dL) 128 H 149 H (75-99) mg/dL Total Protein 6.1 L (6.3-8.2) g/dL Albumin 3.3 L (3.5-5.0) g/dL Assessment and Plan Plan: Assessment: Post op day #2 s/p right tka Plan: Pain control, did increase oral pain medication DVT prophylaxis, continue current medication Ice and elevate often Continue work with PT and use of CPM Medical recommendations Possible dc to rehab, will re evaluate tomorrow Time with Patient: Less than 30
[2018-08-07] MEDS: HYDROcodone/APAP 7.5-325MG 1 EACH TAB PO PRN ×2 (16:19→22:40)
[2018-08-07 16:51] LABS: Iron Saturation 10.31 (12.00-45.00)
[2018-08-07 18:30] LABS: Glucose,Whole Blood 154 mg/dL (75-99)
[2018-08-07] MEDS: SENNOSIDES-DOCUSATE SODIUM 1 EACH TAB PO SCH (20:32)
[2018-08-07 20:46] LABS: Glucose,Whole Blood 115 mg/dL (75-99)
[2018-08-07] MEDS: ONDANSETRON 4 MG/2 ML VIAL IVP PRN (22:45)
[2018-08-08] MEDS: LACTATED RINGERS 1,000 ML IV SCH ×2 (02:23→12:19)
[2018-08-08] MEDS: HYDROcodone/APAP 7.5-325MG 1 EACH TAB PO PRN ×2 (04:23→10:29)
[2018-08-08 07:44] LABS: Glucose,Whole Blood 147 mg/dL (75-99)
[2018-08-08 08:13] LABS: Basophils % (A) 0 %; Eosinophils # (A) 0.1 k/uL (0-0.7); Eosinophils % (A) 2 %; HCT 33.1 % (34.0-46.0); HGB 10.7 gm/dL (11.4-16.0); Lymphocytes # (A) 1.1 k/uL (1.0-4.8); Lymphocytes % (A) 19 %; MCH 32.1 pg (25.0-35.0); MCHC 32.4 g/dL (31.0-37.0); Mean Platelet Volume 6.7; Monocytes # (A) 0.5 k/uL (0-1.0); Monocytes % (A) 8 %; Neutrophils # (A) 3.8 k/uL (1.3-7.7); Neutrophils % (A) 67 %; Platelet Count 170 k/uL (150-450); RBC 3.34 m/uL (3.80-5.40); RDW 14.4 % (11.5-15.5); WBC 5.7 k/uL (3.8-10.6)
[2018-08-08 08:14] LABS: ALT 33 U/L (9-52); AST 21 U/L (14-36); Albumin 3.6 g/dL (3.5-5.0); Alkaline Phosphatase 40 U/L (38-126); Anion Gap 6 mmol/L; Blood Urea Nitrogen 11 mg/dL (7-17); Calcium 9.4 mg/dL (8.4-10.2); Carbon Dioxide 28 mmol/L (22-30); Chloride 106 mmol/L (98-107); Glucose 128 mg/dL (74-99); Sodium 140 mmol/L (137-145); Total Bilirubin 0.5 mg/dL (0.2-1.3); Total Protein 6.5 g/dL (6.3-8.2)
[2018-08-08] MEDS: ALLOPURINOL 300 MG TAB PO SCH (09:38)
[2018-08-08] MEDS: ALPRAZolam 0.25 MG TAB PO PRN ×2 (09:38→21:25)
[2018-08-08] MEDS: FAMOTIDINE 20 MG TAB PO SCH (09:39)
[2018-08-08] MEDS: LISINOPRIL 10 MG TAB PO SCH (09:39)
[2018-08-08] MEDS: MELOXICAM 7.5 MG TAB PO SCH (09:39)
[2018-08-08] MEDS: ONDANSETRON 4 MG/2 ML VIAL IVP PRN (09:39)
[2018-08-08] MEDS: ENOXAPARIN 30 MG/0.3 ML SYRINGE SQ SCH ×2 (09:39→21:24)
[2018-08-08] MEDS: INSULIN ASPART (NovoLOG) 100 UNIT/ML VIAL SQ SCH ×4 (09:41→21:24)
[2018-08-08] MEDS: VITAMIN E (DL,TOCOPHERYL ACET) 400 UNIT CAP PO SCH (09:44)
[2018-08-08 12:13] LABS: Glucose,Whole Blood 111 mg/dL (75-99)
--- NOTE | 2018-08-08 12:17 | P.PN ---
Subjective Progress Note Date: 08/08/18 Principal diagnosis: s/p right tka Patient evaluated at bedside, no acute complaints. Slight increase in pain involving knee. No chest pain or shortness of breath Objective - Vital Signs Vital signs: Vital Signs Temp 98.6 F 08/08/18 07:00 Pulse 90 08/08/18 07:00 Resp 12 08/08/18 07:00 BP 121/56 08/08/18 07:00 Pulse Ox 95 08/08/18 07:00 Intake & Output 08/07/18 08/08/18 08/08/18 18:59 06:59 18:59 Intake Total 1156 480 Balance 1156 480 Intake: Oral 1156 480 Other: # Voids 1 1 - Exam Right lower extremity: Incision clean and dry. Distal neurovascular exam intact. Calf is soft, no tenderness with palpation - Labs CBC & Chem 7: 08/08/18 07:35 08/08/18 07:35 Labs: Abnormal Lab Results - Last 24 Hours (Table) 08/07/18 08/07/18 08/07/18 Range/Units 06:14 12:07 18:19 RBC (3.80-5.40) m/uL Hgb (11.4-16.0) gm/dL Hct (34.0-46.0) % Glucose (74-99) mg/dL POC Glucose (mg/dL) 149 H 154 H (75-99) mg/dL Iron 27 L (50-170) ug/dL Iron Saturation 10.31 L (12.00-45.00) 08/07/18 08/08/18 08/08/18 Range/Units 20:34 07:32 07:35 RBC 3.34 L (3.80-5.40) m/uL Hgb 10.7 L (11.4-16.0) gm/dL Hct 33.1 L (34.0-46.0) % Glucose (74-99) mg/dL POC Glucose (mg/dL) 115 H 147 H (75-99) mg/dL Iron (50-170) ug/dL Iron Saturation (12.00-45.00) 08/08/18 08/08/18 Range/Units 07:35 11:47 RBC (3.80-5.40) m/uL Hgb (11.4-16.0) gm/dL Hct (34.0-46.0) % Glucose 128 H (74-99) mg/dL POC Glucose (mg/dL) 111 H (75-99) mg/dL Iron (50-170) ug/dL Iron Saturation (12.00-45.00) Assessment and Plan Plan: Assessment: Post op day #3 s/p right tka Plan: Pain control, pain is slightly better than yesterday DVT prophylaxis, continue current medication Ice and elevate often Continue work with PT and use of CPM Medical recommendations Possible discharged to rehab today, likely tomorrow Time with Patient: Less than 30
--- NOTE | 2018-08-08 12:30 | P.PN ---
Subjective Progress Note Date: 08/08/18 This is a 72-year-old female with a known past medical history of hypertension, hyperlipidemia, borderline diabetic and osteoarthritis. Patient underwent right total knee arthroplasty with Dr. Bai yesterday on August 05. She tolerated the surgery well. Estimated blood loss 50 mL. Patient is complaining of knee pain today. And they're planning discharged possibly [facility]. Patient denies any chest pain or shortness of breath. She denies any nausea or vomiting. Denies any bowel movement changes or urinary symptoms. We' ve been consulted for medical management. Medications have been reviewed. Also note the patient had heart catheterization February 2018 at that time normal coronary arteries reported on 08/07/2018 patient remains alert and oriented 3. Patient is currently experiencing pain to right knee. Denies any other symptoms at this time. Patient denies chest pain or shortness breath. Patient denies nausea vomiting or diarrhea. Patient encouraged to ask for pain meds as needed to control pain. 08/08/2018 patient complaining of right knee pain she is on [place] for pain control. Patient is being evaluated for placement at [facility]. The planning discharge either later today or tomorrow patient denies any chest pain or shortness of breath denies any nausea or vomiting reports having a bowel movement. Denies any difficulty urinating. Objective - Vital Signs Vital signs: Vital Signs Temp 98.6 F 08/08/18 07:00 Pulse 90 08/08/18 07:00 Resp 12 08/08/18 07:00 BP 121/56 08/08/18 07:00 Pulse Ox 95 08/08/18 07:00 Intake & Output 08/07/18 08/08/18 08/08/18 18:59 06:59 18:59 Intake Total 1156 480 Balance 1156 480 Intake: Oral 1156 480 Other: # Voids 1 1 - Exam Head normocephalic Neck supple Lungs clear to auscultation bilaterally no wheezing or crackles Heart regular rate and rhythm S1-S2, no rub or gallop Abdomen is soft nontender nondistended positive bowel sounds no hepatosplenomegaly Extremities right knee incision site some dried blood. No evidence of cellulitis. Mild swelling. No calf tenderness Neuro alert and orientated to 3 - Labs CBC & Chem 7: 08/08/18 07:35 08/08/18 07:35 Labs: Abnormal Lab Results - Last 24 Hours (Table) 08/07/18 08/07/18 08/07/18 Range/Units 06:14 18:19 20:34 RBC (3.80-5.40) m/uL Hgb (11.4-16.0) gm/dL Hct (34.0-46.0) % Glucose (74-99) mg/dL POC Glucose (mg/dL) 154 H 115 H (75-99) mg/dL Iron 27 L (50-170) ug/dL Iron Saturation 10.31 L (12.00-45.00) 08/08/18 08/08/18 08/08/18 Range/Units 07:32 07:35 07:35 RBC 3.34 L (3.80-5.40) m/uL Hgb 10.7 L (11.4-16.0) gm/dL Hct 33.1 L (34.0-46.0) % Glucose 128 H (74-99) mg/dL POC Glucose (mg/dL) 147 H (75-99) mg/dL Iron (50-170) ug/dL Iron Saturation (12.00-45.00) 08/08/18 Range/Units 11:47 RBC (3.80-5.40) m/uL Hgb (11.4-16.0) gm/dL Hct (34.0-46.0) % Glucose (74-99) mg/dL POC Glucose (mg/dL) 111 H (75-99) mg/dL Iron (50-170) ug/dL Iron Saturation (12.00-45.00) Assessment and Plan Assessment: 1. Osteoarthritis of right knee: Status post right total knee arthroplasty. Continue pain control per orthopedics. Continue DVT prophylaxis with Lovenox. Patient will possibly discharge to [facility] either today or tomorrow. 2. Essential hypertension: Continue lisinopril 3. Diabetes mellitus type 2: Diet controlled. Continue NovoLog sliding scale coverage. A1c from 07/26/2018 shows A1c of 5.8 4. Hyperlipidemia continue statin 5. Iron deficiency anemia hemoglobin 10.7. Total iron 27. Will start ferrous sulfate 325 g twice a day. Continue to monitor hemoglobin GI prophylaxis Pepcid and DVT prophylaxis Lovenox Patient is medically stable for discharge to [facility] today or tomorrow when cleared by orthopedics. I performed an examination of the patient and discussed their management with the physician Sales Floor Team Leader. I have reviewed the Physician Sales Floor Team Leader's notes and agree with the documented findings and plan of care
[2018-08-08 17:15] LABS: Glucose,Whole Blood 116 mg/dL (75-99)
[2018-08-08] MEDS: ACETAMINOPHEN TAB 325 MG TAB PO PRN ×2 (17:46→22:55)
[2018-08-08 20:27] LABS: Glucose,Whole Blood 140 mg/dL (75-99)
[2018-08-08] MEDS: SENNOSIDES-DOCUSATE SODIUM 1 EACH TAB PO SCH (21:24)
[2018-08-08] MEDS: FERROUS SULFATE 325 MG TAB PO SCH (21:24)
[2018-08-08] MEDS: ATORVASTATIN 10 MG TAB PO SCH (21:24)
[2018-08-09] MEDS: ACETAMINOPHEN TAB 325 MG TAB PO PRN ×2 (05:15→10:32)
[2018-08-09] MEDS: INSULIN ASPART (NovoLOG) 100 UNIT/ML VIAL SQ SCH ×2 (07:42→12:54)
[2018-08-09] MEDS: ENOXAPARIN 30 MG/0.3 ML SYRINGE SQ SCH (07:42)
[2018-08-09] MEDS: MELOXICAM 7.5 MG TAB PO SCH (07:43)
[2018-08-09] MEDS: FAMOTIDINE 20 MG TAB PO SCH (07:43)
[2018-08-09] MEDS: VITAMIN E (DL,TOCOPHERYL ACET) 400 UNIT CAP PO SCH (07:43)
[2018-08-09] MEDS: LISINOPRIL 10 MG TAB PO SCH (07:43)
[2018-08-09] MEDS: ALLOPURINOL 300 MG TAB PO SCH (07:43)
[2018-08-09] MEDS: FERROUS SULFATE 325 MG TAB PO SCH (07:44)
[2018-08-09 09:17] LABS: Basophils % (A) 1 %; Eosinophils # (A) 0.2 k/uL (0-0.7); Eosinophils % (A) 3 %; HCT 34.4 % (34.0-46.0); HGB 11.5 gm/dL (11.4-16.0); Lymphocytes % (A) 17 %; MCH 32.9 pg (25.0-35.0); MCHC 33.4 g/dL (31.0-37.0); MCV 98.4 fL (80.0-100.0); Mean Platelet Volume 6.7; Monocytes # (A) 0.4 k/uL (0-1.0); Monocytes % (A) 6 %; Neutrophils # (A) 4.1 k/uL (1.3-7.7); Neutrophils % (A) 70 %; Platelet Count 210 k/uL (150-450); RBC 3.49 m/uL (3.80-5.40); RDW 14.4 % (11.5-15.5); WBC 5.8 k/uL (3.8-10.6)
[2018-08-09 09:25] LABS: ALT 30 U/L (9-52); AST 27 U/L (14-36); Albumin 4.1 g/dL (3.5-5.0); Alkaline Phosphatase 46 U/L (38-126); Anion Gap 9 mmol/L; Blood Urea Nitrogen 11 mg/dL (7-17); Calcium 9.7 mg/dL (8.4-10.2); Carbon Dioxide 30 mmol/L (22-30); Chloride 102 mmol/L (98-107); Glucose 164 mg/dL (74-99); Sodium 141 mmol/L (137-145); Total Bilirubin 0.6 mg/dL (0.2-1.3); Total Protein 7.4 g/dL (6.3-8.2)
[2018-08-09 11:14] VITALS: BP 136/75; PULSE 53; RESP 18; TEMP 97.6
--- NOTE | 2018-08-09 11:51 | P.PN ---
Subjective Progress Note Date: 08/09/18 Principal diagnosis: s/p right tka Patient evaluated at bedside, patient is doing very well today. After discontinuing [place] she feels a lot better. She is utilizing Tylenol for pain at this time. No chest pain or shortness of breath Objective - Vital Signs Vital signs: Vital Signs Temp 97.6 F 08/09/18 07:43 Pulse 53 L 08/09/18 07:43 Resp 18 08/09/18 07:43 BP 136/75 08/09/18 07:43 Pulse Ox 92 L 08/09/18 02:55 Intake & Output 08/08/18 08/09/18 08/09/18 18:59 06:59 18:59 Other: Voiding Method Toilet Toilet # Voids 2 1 - Exam Right lower extremity: Incision clean and dry. Distal neurovascular exam intact. Calf is soft, no tenderness with palpation - Labs CBC & Chem 7: 08/09/18 08:40 08/09/18 08:40 Labs: Abnormal Lab Results - Last 24 Hours (Table) 08/08/18 08/08/18 08/08/18 Range/Units 11:47 16:59 20:15 RBC (3.80-5.40) m/uL Glucose (74-99) mg/dL POC Glucose (mg/dL) 111 H 116 H 140 H (75-99) mg/dL 08/09/18 08/09/18 Range/Units 08:40 08:40 RBC 3.49 L (3.80-5.40) m/uL Glucose 164 H (74-99) mg/dL POC Glucose (mg/dL) (75-99) mg/dL Assessment and Plan Plan: Assessment: Post op day #4 s/p right tka Plan: Pain control, continue just Tylenol as needed DVT prophylaxis, aspirin 325 mg daily Ice and elevate often Continue work with PT and use of CPM Medical recommendations Will discharge patient to home today Time with Patient: Less than 30
--- NOTE | 2018-08-09 11:54 | P.DS ---
Providers Date of admission: 08/05/18 10:32 Expected date of discharge: 08/09/18 Attending physician: Isaiah Bai Consults: 08/05/18 14:14 Consult Physician Routine Consulting Provider: Ciro Smith Consult Reason/Comments: Medical management Do you want consulting provider notified?: Yes Primary care physician: Ciro Smith Hospital Course: Date of admission: 08/05/2018 Date of discharge: 08/09/2018 Admission diagnosis: Status post right total knee arthroplasty Discharge diagnosis: Same Attending physician: Dr. Bai Surgical procedures: Right total knee arthroplasty Brief history: Patient is a 72-year-old female with a history of progressive primary right knee osteoarthritis . At this point patient has failed conservative treatment measures and has opted to proceed with a elective right total knee arthroplasty. Hospital course: Details of patient's surgery can be found in operative report. Patient tolerated the procedure well and was subsequently transported to orthopedic floor. Patient's orthopeidc and medical care was provided daily. Patient had daily laboratory tests performed for evaluation of overall blood counts. Patient had daily physical therapy to include strengthening range of motion as well as education with walker ambulation. Patient had daily CPM usage as part of their physical therapy program. Patient was treated with Lovenox for their postoperative DVT prophylaxis during their inpatient stay. Patient was noted to have a relatively uneventful postoperative course. Patient reported satisfactory pain control with oral pain medications by postoperative day 0. Patient showed satisfactory progress with physical therapy. Patient moved steadily through the program and had no difficulty meeting the goals by postoperative day 4. Given patient's otherwise satisfactory course and having met physical therapy goals, plan is to discharge patient home on postoperative day 4. Discharge condition/disposition: Patient will be discharged home] in stable condition. Discharge medications: Instructions are given on resumption of patient's normal daily medications per primary care recommendation, in addition patient will be prescribed Tylenol 650 mg, aspirin 325 mg, Xanax 0.25 mg, ferrous sulfate 325 mg. Discharge instructions: 1. Wound care and infection precautions, [keep incision dry and covered while showering], no lotions, creams, moisturizers. No soaking, tubs, pools, hottubs. Do not scrub over the incision. 2. Weight-bear [as tolerated] with walker / cane until follow-up. 3. Ice and elevate when necessary. Do not exceed 20 minutes per hour with ice pack. 4. Utilize compression sleeve until seen at first follow up appointment. 5. Visiting nursing care. 6. Home physical therapy [including home CPM]. 7. Pain meds and anticoagulants per prescription. 8. Pain medication has potential to cause constipation. Increase oral fluid and fiber intake. Contact primary care provider if you have not had a bowel movement within 48 hours after discharge 9. No anti-inflammatory medication until discussed at first post operative visit, this including Motrin, Aleve, Mobic, Diclofenac. 10. Follow up in office at 2 weeks postop with Tani Cordon PA-C 11. Follow up with your primary care doctor 7-10 days after discharge. 12. Contact [facility] with any questions, . Procedures: Right total knee arthroplasty Patient Condition at Discharge: Good Plan - Discharge Summary Discharge Rx Participant: Yes New Discharge Prescriptions: New ALPRAZolam [Xanax] 0.25 mg PO TID PRN #9 tab PRN Reason: Anxiety Ferrous Sulfate [Iron (65 MG Elemental)] 325 mg PO BID tab Acetaminophen Tab [Tylenol Tab] 650 mg PO Q6H #30 tablet Aspirin 325 mg PO DAILY #30 tab Continue Simvastatin [Zocor] 20 mg PO Q48H Lisinopril [Zestril] 10 mg PO DAILY Allopurinol [Zyloprim] 150 mg PO DAILY Vitamin E 400 unit PO DAILY Vitamin B Complex 1 cap PO DAILY Krill/Om-3/Dha/Epa/Phospho/Ast [[place]-3 Krill Oil 300 mg Sfgl] 1 cap PO DAILY Discontinued ALPRAZolam [Xanax] 0.125 - 0.25 mg PO TID Glucosamine/Chondr [place] A Sod [Osteo Bi-Flex Caplet] 1 tab PO DAILY Discharge Medication List Allopurinol [Zyloprim] 150 mg PO DAILY 12/20/16 [History] Lisinopril [Zestril] 10 mg PO DAILY 12/20/16 [History] Simvastatin [Zocor] 20 mg PO Q48H 12/20/16 [History] Vitamin E 400 unit PO DAILY 02/20/18 [History] Krill/Om-3/Dha/Epa/Phospho/Ast [[place]-3 Krill Oil 300 mg Sfgl] 1 cap PO DAILY [History] Vitamin B Complex 1 cap PO DAILY 07/29/18 [History] ALPRAZolam [Xanax] 0.25 mg PO TID PRN #9 tab 08/08/18 [Rx] Ferrous Sulfate [Iron (65 MG Elemental)] 325 mg PO BID tab 08/08/18 [Rx] Acetaminophen Tab [Tylenol Tab] 650 mg PO Q6H #30 tablet 08/09/18 [Rx] Aspirin 325 mg PO DAILY #30 tab 08/09/18 [Rx] Follow up Appointment(s)/Referral(s): [facility], [NON-STAFF] - As Needed Domo Cordon PAC [PHYSICIAN DISPENSARY CLERK] - 08/21/18 2:40 pm Activity/Diet/Wound Care/Special Instructions: Orthopedic Discharge Instructions: 1. Wound care and infection precautions, keep incision dry and covered while showering, no lotions, creams, moisturizers. No soaking, pools, hot tubs. Do not scrub over incision. 2. Weight-bear as tolerated with walker / cane until follow-up. 3. Ice and elevate when necessary. Do not exceed 20 minutes per hour with ice pack. 4. Utilize compression sleeve until seen at first follow up appointment. 5. Pain meds and anticoagulants per prescription. 6. Pain medication has potential to cause constipation. Increase oral fluid and fiber intake. Contact primary care provider if you have not had a bowel movement within 48 hours after discharge. 7. No anti-inflammatory medication until discussed at first post operative visit, this including Motrin, Aleve, Mobic, Diclofenac. 8. Follow up in office at 2 weeks postop with Tani Cordon PA-C 9. Follow up with your primary care doctor 7-10 days after discharge. 10. Contact [facility] with any questions, . Discharge Disposition: HOME WITH HOME HEALTH SERVICES
[2018-08-09 11:56] LABS: Appearance,Urine Clear (Clear); Bilirubin,Urine Negative (Negative); Blood,Urine Negative (Negative); Color,Urine Yellow; Glucose,Urine (UA) Negative (Negative); Ketones,Urine Negative (Negative); Leukocyte Esterase,Urine Negative (Negative); Nitrite,Urine Negative (Negative); Protein,Urine Negative (Negative); Specific Gravity,Urine 1.008 (1.001-1.035); Urobilinogen,Urine <2.0 mg/dL (<2.0)
[2018-08-09 12:07] LABS: Glucose,Whole Blood 156 mg/dL (75-99)
[2018-08-09 12:07] LABS: Glucose,Whole Blood 104 mg/dL (75-99)
--- NOTE | 2018-08-09 12:30 | P.PN ---
Subjective Progress Note Date: 08/09/18 This is a 72-year-old female with a known past medical history of hypertension, hyperlipidemia, borderline diabetic and osteoarthritis. Patient underwent right total knee arthroplasty with Dr. Bai yesterday on August 05. She tolerated the surgery well. Estimated blood loss 50 mL. Patient is complaining of knee pain today. And they're planning discharged possibly [facility]. Patient denies any chest pain or shortness of breath. She denies any nausea or vomiting. Denies any bowel movement changes or urinary symptoms. We' ve been consulted for medical management. Medications have been reviewed. Also note the patient had heart catheterization February 2018 at that time normal coronary arteries reported on 08/07/2018 patient remains alert and oriented 3. Patient is currently experiencing pain to right knee. Denies any other symptoms at this time. Patient denies chest pain or shortness breath. Patient denies nausea vomiting or diarrhea. Patient encouraged to ask for pain meds as needed to control pain. 08/08/2018 patient complaining of right knee pain she is on [place] for pain control. Patient is being evaluated for placement at [facility]. The planning discharge either later today or tomorrow patient denies any chest pain or shortness of breath denies any nausea or vomiting reports having a bowel movement. Denies any difficulty urinating. 08/09/2018 patient had a low-grade temp this morning of 100.2 repeat temp is 97.6. Per nursing staff patient has not been using her incentive spirometer and his been covered with multiple blankets. Patient denies any cough, chills, sweats, nausea or vomiting, diarrhea, any burning with urination, any drainage from her knee. Patient is scheduled for discharge home today. She is up and ambulating without assistance. And would prefer to go to home instead of [facility]. She is using Tylenol as needed for pain Objective - Vital Signs Vital signs: Vital Signs Temp 97.6 F 08/09/18 07:43 Pulse 53 L 08/09/18 07:43 Resp 18 08/09/18 07:43 BP 136/75 08/09/18 07:43 Pulse Ox 92 L 08/09/18 02:55 Intake & Output 08/08/18 08/09/18 08/09/18 18:59 06:59 18:59 Other: Voiding Method Toilet Toilet # Voids 2 1 - Exam Head normocephalic Neck supple Lungs clear to auscultation bilaterally no wheezing or crackles Heart regular rate and rhythm S1-S2, no rub or gallop Abdomen is soft nontender nondistended positive bowel sounds no hepatosplenomegaly Extremities right knee incision site some dried blood. No evidence of cellulitis. No drainage. Mild swelling. No calf tenderness Neuro alert and orientated to 3 - Labs CBC & Chem 7: 08/09/18 08:40 08/09/18 08:40 Labs: Abnormal Lab Results - Last 24 Hours (Table) 08/08/18 08/08/18 08/09/18 Range/Units 16:59 20:15 06:59 RBC (3.80-5.40) m/uL Glucose (74-99) mg/dL POC Glucose (mg/dL) 116 H 140 H 156 H (75-99) mg/dL 08/09/18 08/09/18 08/09/18 Range/Units 08:40 08:40 11:43 RBC 3.49 L (3.80-5.40) m/uL Glucose 164 H (74-99) mg/dL POC Glucose (mg/dL) 104 H (75-99) mg/dL Assessment and Plan Assessment: 1. Osteoarthritis of right knee: Status post right total knee arthroplasty. Continue Tylenol nausea for pain. PDX have discharge patient with aspirin 325 mg daily for DVT prophylaxis 2. Essential hypertension: Continue lisinopril 3. Diabetes mellitus type 2: Diet controlled. Continue NovoLog sliding scale coverage. A1c from 07/26/2018 shows A1c of 5.8. Patient is to continue diabetic diet. No medication required for diabetes at this time 4. Hyperlipidemia continue statin 5. Iron deficiency anemia hemoglobin 10.7. Total iron 27. Will start ferrous sulfate 325 g twice a day. Hemoglobin 11.5 at discharge 6. Low-grade temp of 100.2 likely related to atelectasis. Patient has not been using her incentive spirometer. Encourage incentive spirometer use and to increase her activity at home. Patient is medically stable for discharge. Urinalysis is negative. Patient has no signs of infection in the knee. Reports no diarrhea or vomiting. Denies any cough. Denies any burning with urination. 7. Generalized anxiety disorder continue with her Xanax as needed GI prophylaxis Pepcid and DVT prophylaxis Lovenox Patient is medically stable for discharge. We'll follow with Dr. Smith in 1 week. Encourage incentive spirometry use. I performed an examination of the patient and discussed their management with the physician Aviation Project Manager. I have reviewed the Physician Aviation Project Manager's notes and agree with the documented findings and plan of care
== END 2018-08-09 15:48 | disposition home health service (06) | DRG 470 ==
LOC: 2ORMAIN 10:32 → 4SSUR 18:27
PROVIDERS: ADMIT Orthopaedic Surgery; ATTEND Orthopaedic Surgery
PROC: 0SRC0J9 Replacement of Right Knee Joint with Synthetic Substitute, Cemented, Open Approach (ICD-10-PCS; principal; 2018-08-05 12:40)
DX: M17.11 Unilateral primary osteoarthritis, right knee (principal); J98.11 Atelectasis; M06.9 Rheumatoid arthritis, unspecified; E11.9 Type 2 diabetes mellitus without complications; D50.9 Iron deficiency anemia, unspecified; E78.1 Pure hyperglyceridemia; E78.5 Hyperlipidemia, unspecified; F41.1 Generalized anxiety disorder; I10 Essential (primary) hypertension; M10.9 Gout, unspecified; G47.33 Obstructive sleep apnea (adult) (pediatric); Z79.899 Other long term (current) drug therapy; Z88.2 Allergy status to sulfonamides; Z87.891 Personal history of nicotine dependence; Z98.42 Cataract extraction status, left eye; Z96.1 Presence of intraocular lens; Z80.9 Family history of malignant neoplasm, unspecified
CPT/HCPCS: 80053; 81003; 82728; 83540; 83550; 85025; 88300; 94760

== ENCOUNTER 2019-04-27 13:06 | Emergency (ER) | payer MEDICARE ==
[2019-04-27] MEDS ORDERED: SODIUM CHLORIDE 0.9% 1,000 ML IV STA (13:29)
[2019-04-27] MEDS ORDERED: KETOROLAC 30 MG/ML 1 ML VIAL IVP STA (13:29)
--- NOTE | 2019-04-27 13:45 | ED ---
Abdominal Pain HPI - General Chief Complaint: Abdominal Pain Stated Complaint: Rt fkank pain/back Time Seen by Provider: 04/27/19 13:18 Source: patient, family, RN notes reviewed Mode of arrival: wheelchair Limitations: no limitations - History of Present Illness Initial Comments: 73-year-old female presents emergency Department chief complaint of right flank pain. Patient states that she injured her back weeks ago that improved enough states that she has pain in her right side and abdomen. She states that it worsened to the point last that she cannot tolerate. She has any chest pain or shortness breath. She states it hurts when she twists or bends forward. states intermittent nausea no vomiting no known fevers chills. She states her bowel movements have been regular no dysuria no hematuria. Patient had no prior abdominal surgeries. - Related Data Home Medications Medication Instructions Recorded Confirmed Allopurinol [Zyloprim] 150 mg PO DAILY 12/20/16 08/05/18 Lisinopril [Zestril] 10 mg PO DAILY 12/20/16 08/05/18 Simvastatin [Zocor] 20 mg PO Q48H 12/20/16 08/05/18 Vitamin E 400 unit PO DAILY 02/20/18 08/05/18 Krill/Om-3/Dha/Epa/Phospho/Ast 1 cap PO DAILY 07/29/18 08/05/18 [[place]-3 Krill Oil 300 mg Sfgl] Vitamin B Complex 1 cap PO DAILY 07/29/18 08/05/18 Previous Rx's Medication Instructions Recorded ALPRAZolam [Xanax] 0.25 mg PO TID PRN #9 tab 08/08/18 Ferrous Sulfate [Iron (65 MG 325 mg PO BID tab 08/08/18 Elemental)] Acetaminophen Tab [Tylenol Tab] 650 mg PO Q6H #30 tablet 08/09/18 Aspirin 325 mg PO DAILY #30 tab 08/09/18 Allergies Allergy/AdvReac Type Severity Reaction Status Date / Time Sulfa (Sulfonamide Allergy Rash/Hives Verified 04/27/19 13:16 Antibiotics) Review of Systems ROS Statement: Those systems with pertinent positive or pertinent negative responses have been documented in the HPI. ROS Other: All systems not noted in ROS Statement are negative. Past Medical History Past Medical History: Hyperlipidemia, Hypertension, Osteoarthritis (OA), Rheuma toid Arthritis (RA) Additional Past Medical History / Comment(s): palpitations, recent fall, recent "bad stress test", SOB, elevated liver enzymes, high uric acid, high trigly cerides, EC at [facility] 02/20/18 with "chest spasms" History of Any Multi-Drug Resistant Organisms: None Reported Past Surgical History: Orthopedic Surgery, Tonsillectomy Additional Past Surgical History / Comment(s): right knee replacement Past Anesthesia/Blood Transfusion Reactions: No Reported Reaction Past Psychological History: Anxiety Smoking Status: Former smoker Past Alcohol Use History: Occasional Past Drug Use History: Marijuana - Past Family History Mother Family Medical History: No Reported History Father Family Medical History: Cancer General Exam Limitations: no limitations General appearance: alert, in no apparent distress Head exam: Present: atraumatic, normocephalic, normal inspection Eye exam: Present: normal appearance, PERRL, EOMI. Absent: scleral icterus, conjunctival injection, periorbital swelling ENT exam: Present: normal exam, mucous membranes moist Neck exam: Present: normal inspection, full ROM. Absent: tenderness, meningismus, lymphadenopathy Respiratory exam: Present: normal lung sounds bilaterally. Absent: respiratory distress, wheezes, rales, rhonchi, stridor Cardiovascular Exam: Present: regular rate, normal rhythm, normal heart sounds. Absent: systolic murmur, diastolic murmur, rubs, gallop, clicks GI/Abdominal exam: Present: soft, tenderness (Moderate mid to right-sided abdominal tenderness), normal bowel sounds. Absent: distended, guarding, rebound, rigid Back exam: Absent: CVA tenderness (R), CVA tenderness (L) Neurological exam: Present: alert, oriented X3, CN II-XII intact Skin exam: Present: warm, dry, intact, normal color. Absent: rash Course Vital Signs 04/27/19 13:13 Temperature 97.8 F Pulse Rate 82 Respiratory 18 Rate Blood Pressure 152/69 O2 Sat by Pulse 94 L Oximetry Medical Decision Making - Medical Decision Making Patient had labs, CT and ultrasound along with urinalysis with no major findings. There is a several Celestine cyst. I did discuss that she may have some underlying dysfunctional gallbladder or possible early shingles though there is no current rash. Patient will follow-up with on-call surgery, will follow-up PCP and return for any worsening symptoms. - Lab Data Result diagrams: 04/27/19 13:40 04/27/19 13:40 Lab Results 04/27/19 04/27/19 04/27/19 Range/Units 13:40 13:40 13:40 WBC 6.2 (3.8-10.6) k/uL RBC 4.17 (3.80-5.40) m/uL Hgb 13.7 (11.4-16.0) gm/dL Hct 39.4 (34.0-46.0) % MCV 94.7 (80.0-100.0) fL MCH 33.0 (25.0-35.0) pg MCHC 34.8 (31.0-37.0) g/dL RDW 13.8 (11.5-15.5) % Plt Count 248 (150-450) k/uL Neutrophils % 58 % Lymphocytes % 28 % Monocytes % 6 % Eosinophils % 3 % Basophils % 2 % Neutrophils # 3.6 (1.3-7.7) k/uL Lymphocytes # 1.8 (1.0-4.8) k/uL Monocytes # 0.4 (0-1.0) k/uL Eosinophils # 0.2 (0-0.7) k/uL Basophils # 0.1 (0-0.2) k/uL Sodium 139 (137-145) mmol/L Potassium 4.0 (3.5-5.1) mmol/L Chloride 106 (98-107) mmol/L Carbon Dioxide 22 (22-30) mmol/L Anion Gap 11 mmol/L BUN 17 (7-17) mg/dL Creatinine 0.67 (0.52-1.04) mg/dL Est GFR (CKD-EPI)AfAm >90 (>60 ml/min/1.73 sqM) Est GFR (CKD-EPI)NonAf 88 (>60 ml/min/1.73 sqM) Glucose 105 H (74-99) mg/dL Plasma Lactic Acid Walter 1.1 (0.7-2.0) mmol/L Calcium 10.7 H (8.4-10.2) mg/dL Total Bilirubin 0.4 (0.2-1.3) mg/dL AST 38 H (14-36) U/L ALT 59 H (9-52) U/L Alkaline Phosphatase 59 (38-126) U/L Total Protein 8.3 H (6.3-8.2) g/dL Albumin 4.6 (3.5-5.0) g/dL Amylase 56 (30-110) U/L Lipase 174 (23-300) U/L Urine Color Urine Appearance (Clear) Urine pH (5.0-8.0) Ur Specific [place] (1.001-1.035) Urine Protein (Negative) Urine Glucose (UA) (Negative) Urine Ketones (Negative) Urine Blood (Negative) Urine Nitrite (Negative) Urine Bilirubin (Negative) Urine Urobilinogen (<2.0) mg/dL Ur Leukocyte Esterase (Negative) Urine RBC (0-5) /hpf Urine WBC (0-5) /hpf Ur Squamous Epith Cells (0-4) /hpf Amorphous Sediment (None) /hpf Hyaline Casts (0-2) /lpf Urine Mucus (None) /hpf 04/27/19 Range/Units 14:55 WBC (3.8-10.6) k/uL RBC (3.80-5.40) m/uL Hgb (11.4-16.0) gm/dL Hct (34.0-46.0) % MCV (80.0-100.0) fL MCH (25.0-35.0) pg MCHC (31.0-37.0) g/dL RDW (11.5-15.5) % Plt Count (150-450) k/uL Neutrophils % % Lymphocytes % % Monocytes % % Eosinophils % % Basophils % % Neutrophils # (1.3-7.7) k/uL Lymphocytes # (1.0-4.8) k/uL Monocytes # (0-1.0) k/uL Eosinophils # (0-0.7) k/uL Basophils # (0-0.2) k/uL Sodium (137-145) mmol/L Potassium (3.5-5.1) mmol/L Chloride (98-107) mmol/L Carbon Dioxide (22-30) mmol/L Anion Gap mmol/L BUN (7-17) mg/dL Creatinine (0.52-1.04) mg/dL Est GFR (CKD-EPI)AfAm (>60 ml/min/1.73 sqM) Est GFR (CKD-EPI)NonAf (>60 ml/min/1.73 sqM) Glucose (74-99) mg/dL Plasma Lactic Acid Walter (0.7-2.0) mmol/L Calcium (8.4-10.2) mg/dL Total Bilirubin (0.2-1.3) mg/dL AST (14-36) U/L ALT (9-52) U/L Alkaline Phosphatase (38-126) U/L Total Protein (6.3-8.2) g/dL Albumin (3.5-5.0) g/dL Amylase (30-110) U/L Lipase (23-300) U/L Urine Color Light Yellow Urine Appearance Clear (Clear) Urine pH 6.0 (5.0-8.0) Ur Specific [place] 1.012 (1.001-1.035) Urine Protein Negative (Negative) Urine Glucose (UA) Negative (Negative) Urine Ketones Negative (Negative) Urine Blood Negative (Negative) Urine Nitrite Negative (Negative) Urine Bilirubin Negative (Negative) Urine Urobilinogen <2.0 (<2.0) mg/dL Ur Leukocyte Esterase Trace H (Negative) Urine RBC <1 (0-5) /hpf Urine WBC 3 (0-5) /hpf Ur Squamous Epith Cells 1 (0-4) /hpf Amorphous Sediment Rare H (None) /hpf Hyaline Casts 3 H (0-2) /lpf Urine Mucus Rare H (None) /hpf Disposition Clinical Impression: Abdominal pain Disposition: HOME SELF-CARE Condition: Stable Instructions (If sedation given, give patient instructions): Abdominal Pain (ED) Additional Instructions: Please return to the Emergency Department if symptoms worsen or any other concerns. Is patient prescribed a controlled substance at d/c from ED?: No Referrals: Ciro Smith MD [Primary Care Provider] - 1-2 days Michelle Escobar MD [STAFF PHYSICIAN] - 1-2 days Time of Disposition: 16:21
[2019-04-27 13:56] LABS: Basophils # (A) 0.1 k/uL (0-0.2); Basophils % (A) 2 %; Eosinophils # (A) 0.2 k/uL (0-0.7); Eosinophils % (A) 3 %; HCT 39.4 % (34.0-46.0); HGB 13.7 gm/dL (11.4-16.0); Lymphocytes # (A) 1.8 k/uL (1.0-4.8); Lymphocytes % (A) 28 %; MCHC 34.8 g/dL (31.0-37.0); MCV 94.7 fL (80.0-100.0); Mean Platelet Volume 6.4; Monocytes # (A) 0.4 k/uL (0-1.0); Monocytes % (A) 6 %; Neutrophils # (A) 3.6 k/uL (1.3-7.7); Neutrophils % (A) 58 %; Platelet Count 248 k/uL (150-450); RBC 4.17 m/uL (3.80-5.40); RDW 13.8 % (11.5-15.5); WBC 6.2 k/uL (3.8-10.6)
[2019-04-27 14:01] LABS: ALT 59 U/L (9-52); AST 38 U/L (14-36); African American GFR (CKD) >90 (>60 ml/min/1.73 sqM); Albumin 4.6 g/dL (3.5-5.0); Alkaline Phosphatase 59 U/L (38-126); Amylase 56 U/L (30-110); Anion Gap 11 mmol/L; Blood Urea Nitrogen 17 mg/dL (7-17); Calcium 10.7 mg/dL (8.4-10.2); Carbon Dioxide 22 mmol/L (22-30); Chloride 106 mmol/L (98-107); Glucose 105 mg/dL (74-99); Sodium 139 mmol/L (137-145); Total Bilirubin 0.4 mg/dL (0.2-1.3); Total Protein 8.3 g/dL (6.3-8.2)
[2019-04-27 15:04] LABS: Amorphous Sediment,Urine Rare /hpf; Appearance,Urine Clear (Clear); Bilirubin,Urine Negative (Negative); Blood,Urine Negative (Negative); Color,Urine Light Yellow; Glucose,Urine (UA) Negative (Negative); Hyaline Casts,Urine 3 /lpf (0-2); Ketones,Urine Negative (Negative); Leukocyte Esterase,Urine Trace (Negative); Mucus,Urine Rare /hpf; Nitrite,Urine Negative (Negative); Protein,Urine Negative (Negative); RBC,Urine <1 /hpf (0-5); Specific Gravity,Urine 1.012 (1.001-1.035); Squamous Epithelial Cell,Urine 1 /hpf (0-4); Urobilinogen,Urine <2.0 mg/dL (<2.0)
--- NOTE | 2019-04-27 15:20 | CT ---
EXAMINATION TYPE: CT abdomen pelvis w con DATE OF EXAM: 04/27/2019 COMPARISON: None INDICATION: Rt flank pain radiating into back. DLP: 1735.4 mGycm, Automated exposure control for dose reduction was used. CONTRAST: 100 mL of Isovue 300. Study performed without Oral Contrast TECHNIQUE: Axial images were obtained from above the diaphragm to the pubic rami in the axial plane a t 5 mm thick sections. Reconstructed images are reviewed on the computer in the coronal plane. FINDINGS: Limited CT sections are obtained the lung bases. The lung bases are clear. There is a small hiatal hernia. CT ABDOMEN: Liver: There is a 3.4 cm cyst within the right lobe liver measuring 3 Hounsfield units. This may have a small nodule along the lateral wall. Recommend additional evaluation with ultrasound. This appears to be on a comparison ultrasound of 01/30/2017. Spleen: Normal Pancreas: Normal Adrenal glands: The adrenal glands are normal. Gallbladder: Normal Kidneys: No masses are evident. No hydronephrosis is present. No cysts are present. Delayed images were obtained through the kidneys, which remain unremarkable. Aorta: Vascular calcification is within the aorta. Inferior vena cava: Normal. CT PELVIS: Loops of bowel within the abdomen and pelvis are normal. There is some scattered diverticuli within the sigmoid colon without acute diverticulitis. There are loops of bowel which are incompletely dis tended or lack oral contrast limiting their evaluation. Appendix: Not identified. No suspicious tubular structure or inflammatory changes are evident. Urinary bladder: Normal. Genitourinary structures: Uterus appears normal. Adnexal regions are clear Osseous structures: No suspicious lytic or sclerotic lesions. IMPRESSIONS: 1. Diverticulosis without acute diverticulitis. 2. Cyst on the right lobe liver may have a mural nodule. This may been present on the prior ultrasoun d in 2017. Repeat imaging is recommended with ultrasound.
--- NOTE | 2019-04-27 16:08 | US ---
EXAMINATION TYPE: US gallbladder DATE OF EXAM: 04/27/2019 COMPARISON: CT & US CLINICAL HISTORY: pain. Pain, elevated LFT's EXAM MEASUREMENTS: Liver Length: 19.5 cm Gallbladder Wall: 0.2 cm CBD: 0.7 cm Right Kidney: 10.9 x 4.2 x 5.2 cm Pancreas: 4mm panc duct visualized Liver: Enlarged, difficult to penetrate, cyst right lobe as seen on CT and prior US= 3.5 x 3.0 x 3.1 cm Gallbladder: ?Distended Evidence for sonographic Hillman's sign: No CBD: wnl Right Kidney: wnl IMPRESSION: 1. Hepatic cyst. A suspicious wall nodule is not clearly evident on these images. 2. Mild prominence of the pancreatic duct.
[2019-04-27 16:33] VITALS: BP 148/74; PULSE 76; RESP 16; TEMP 98
== END 2019-04-27 16:31 | disposition home or self-care (01) ==
LOC: EC 13:06
DX: R10.9 Unspecified abdominal pain (principal); K76.89 Other specified diseases of liver; F41.9 Anxiety disorder, unspecified; E78.5 Hyperlipidemia, unspecified; I10 Essential (primary) hypertension; M19.90 Unspecified osteoarthritis, unspecified site; M06.9 Rheumatoid arthritis, unspecified; Z79.899 Other long term (current) drug therapy; Z88.2 Allergy status to sulfonamides; Z87.891 Personal history of nicotine dependence
CPT/HCPCS: 36415; 80053; 82150; 83605; 83690; 85025; 81001; 76705; 74177; 99284; 96374; 96361; J1885; Q9967

== ENCOUNTER → 2019-08-07 | Outpatient (CLI) | payer MEDICARE ==
[2019-08-07 14:00] LABS: HCT 39.3 % (34.0-46.0); HGB 13.4 gm/dL (11.4-16.0); MCH 32.3 pg (25.0-35.0); MCHC 34.1 g/dL (31.0-37.0); MCV 94.5 fL (80.0-100.0); Mean Platelet Volume 7.8; Platelet Count 237 k/uL (150-450); RBC 4.15 m/uL (3.80-5.40); RDW 14.4 % (11.5-15.5); WBC 5.5 k/uL (3.8-10.6)
[2019-08-07 15:42] LABS: Eosinophils # (M) 0.17 k/uL (0-0.7); Lymphocytes # (M) 1.65 k/uL (1.0-4.8); Monocytes # (M) 0.72 k/uL (0-1.0); Neutrophils # (M) 2.97 k/uL (1.3-7.7); Neutrophils % (M) 54 %; Nucleated Red Blood Cells 0 /100 WBC (0-0); Total Cells Counted 100
== END | disposition home or self-care (01) ==
LOC: LABPAT 12:07
PROVIDERS: ATTEND Obstetrics & Gynecology
DX: Z01.818 Encounter for other preprocedural examination (principal); Z01.812 Encounter for preprocedural laboratory examination; I10 Essential (primary) hypertension; N95.0 Postmenopausal bleeding; M48.02 Spinal stenosis, cervical region
CPT/HCPCS: 36415; 85025; 93005

== ENCOUNTER 2019-08-19 07:33 | Day surgery (SDC) | payer MEDICARE ==
[2019-08-11 11:47] VITALS: BMI 34.3
--- NOTE | 2019-08-18 16:33 | HP ---
HISTORY AND PHYSICAL DATE OF SURGERY: 08/19/2019 HISTORY OF PRESENT ILLNESS: The patient is a 73-year-old 2, para 2-0-0-2, who was initially sent to the office following a visit with her primary care doctor, at which time she reported an episode of postmenopausal bleeding. Attempts at endometrial biopsy in the office were unsuccessful secondary to cervical stenosis, which led to a pelvic ultrasound, which then demonstrated an endometrial stripe thickness of 12 mm. As a result, we discussed proceeding to the operating room for diagnostic hysteroscopy with D&C for biopsy. PAST MEDICAL HISTORY: Past medical history is significant for history of carpal tunnel syndrome, type 2 diabetes, gout, hyperlipidemia, hypertension and some tendinitis. PAST SURGICAL HISTORY: Significant for arthroscopy of a knee as well as a knee replacement on the right side. There were no apparent surgical or anesthetic concerns. OBSTETRICAL HISTORY: 2, para 2-0-0-2 with two term vaginal deliveries without complications. GYNECOLOGIC HISTORY: Unremarkable, with no history of any infections to include STDs. FAMILY HISTORY: Noncontributory. SOCIAL HISTORY: The patient is and is retired. She is a nonsmoker but does have a remote history of smoking. She reports occasional alcohol and denies any other social concerns. CURRENT MEDICATIONS: Current medications include lisinopril 10 mg daily, simvastatin 20 mg daily, Zyloprim 300 mg daily, Xanax 0.25 mg p.r.n., then I guess Motrin and Tylenol are both as needed as well. ALLERGIES: SULFA with an undocumented response. REVIEW OF SYSTEMS: Is confined to history of present illness. PHYSICAL EXAMINATION: Vital signs are stable. The patient is afebrile. In general this is a well-developed, well-nourished white female in no acute distress. Her heart has a regular rhythm and rate without murmur. Her lungs are clear to auscultation bilaterally in all godwin. Her abdomen is nondistended, has normoactive bowel sounds, is soft, nontender, and without any palpable masses aside from the uterine fundus. Her extremities are without any cyanosis, clubbing, or edema and are nontender to palpation bilaterally. Pelvic examination demonstrates normal external genitalia and BUS with normal vaginal mucosa and cervix, although there is cervical stenosis present. The uterus is mid plane, atrophic in size, mobile, nontender, normal in shape. The adnexa are nontender and nonpalpable without any apparent masses bilaterally. ASSESSMENT AND PLAN: Postmenopausal bleeding with cervical stenosis: Given the findings as noted in the history of present illness, we have opted to proceed to the operating room for diagnostic hysteroscopy with D&C. We will treat presurgically the night before with Cytotec in the vagina to attempt to make the cervix softer and more receptive to dilation. The risks and complications of the procedure have been discussed at length, including the risks for bleeding, bleeding requiring transfusion, infection, and injury to local structures which would include specifically uterine perforation and possible Asherman syndrome. She understood all of this and has agreed to proceed. We are scheduled for the above procedure on the morning of August 19, 2019. MMODL / IJN: [id number] /
[~2019-08-19 07:33] MED LIST changes: -ACETAMINOPHEN TAB 500 MG TAB PO ONE; +HYDROmorphone 0.5 MG/0.5 ML SYRINGE IVP PRN; +LACTATED RINGERS 1,000 ML IV SCH; +LIDOCAINE 1% (10MG/ML) FOR IV START INTRADERMA PRN; -LIDOCAINE 1% 20 ML VIAL (10MG/ML) FOR IV START INTRADERMA PRN; -MELOXICAM 7.5 MG TAB PO ONE; -MIDAZOLAM (PF) 2 MG/2 ML VIAL IV PRN; +MIDAZOLAM 2 MG/2 ML VIAL IV PRN; +Pre Op ABX Message 1 EACH MISC MISCELLANE ONE; +SCOPOLAMINE 1.5MG/72HR PATCH TRANSDERM ONE; -TRANEXAMIC ACID 1,000 MG in SODIUM CHLORIDE 0.9% 100 ML IVPB ONE; -ceFAZolin IN SWFI 2 GM/20 ML SYRINGE IVP ONE; -fentaNYL (PF) 50 MCG/ML 2 ML AMP IV PRN
[2019-08-19] MEDS ORDERED: MIDAZOLAM 2 MG/2 ML VIAL ONE (08:33)
[2019-08-19] MEDS ORDERED: LIDOCAINE 1% INJ 10MG/ML (20 ML MDV) ONE (08:33)
[2019-08-19] MEDS ORDERED: DILTIAZEM 100 MG VIAL.PORT IV ONE (08:33)
[2019-08-19] MEDS ORDERED: PROPOFOL 10 MG/ML 20 ML VIAL IV ONE (08:33)
[2019-08-19] MEDS ORDERED: Acetaminophen-Codeine 300-30mg TAB PO PRN ×2 (08:36)
[2019-08-19] MEDS ORDERED: diphenhydrAMINE 50 MG/ML 1 ML VIAL IVP PRN (08:36)
[2019-08-19] MEDS ORDERED: SIMETHICONE 80 MG CHEWABLE PO PRN (08:36)
[2019-08-19] MEDS ORDERED: ONDANSETRON 4 MG/2 ML VIAL IVP PRN (08:36)
[2019-08-19] MEDS ORDERED: IBUPROFEN 600 MG TAB PO PRN (08:36)
[2019-08-19] MEDS ORDERED: KETOROLAC 30 MG/ML 1 ML VIAL IVP PRN (08:36)
[2019-08-19] MEDS ORDERED: METOCLOPRAMIDE 5 MG/ML 2 ML VIAL IVP PRN (08:36)
[2019-08-19] MEDS ORDERED: LACTATED RINGERS 1,000 ML IV SCH (08:45)
[2019-08-19] MEDS ORDERED: SORBITOL 3% IRRIGATION 3,000 ML IRRIGATION ONE (08:56)
--- NOTE | 2019-08-19 09:09 | P.OP ---
Date of Procedure: 08/19/19 Preoperative Diagnosis: #1. Postmenopausal bleeding #2. Cervical stenosis #3. Thickened endometrial stripe Postoperative Diagnosis: Same plus #4. Large endometrial polyp Procedure(s) Performed: #1. Diagnostic hysteroscopy #2. Dilation and curettage #3. Endometrial polypectomy Anesthesia: other (Gen. by face mask) Surgeon: Martir Garcia Estimated Blood Loss (ml): 5 IV fluids (ml): 300 Urine output (ml): 100 Pathology: other (Endometrial curettings and polyp, fractured) Condition: stable Disposition: PACU Operative Findings: Preoperative pelvic examination demonstrated a roughly 4-5 week size midplane normal shaped uterus with normal adnexa bilaterally. Intraoperatively, the uterus sounded to approximately 8 cm. The cervix was fairly atrophic and flush with the apex of the vagina. Using the hysteroscope, the endometrial lining appeared to be very atrophic with 1 reasonably large polypoid structure originating in the right anterior fundus which was benign in appearance. The bilateral tubal ostia were seen. Sharp curettage failed to produce any significant amount of tissue. Introduction of an endometrial polyp forceps was able to remove a significant amount of polypoid tissue from the right anterior fundal region. It was removed in several reasonably large pieces. Following use of the polyp forceps, further curettage demonstrated only the typical gritty texture of the endometrium. Description of Procedure: The patient was prepped and draped in usual fashion after general anesthesia was administered by the anesthesiologist. A weighted speculum was placed and the bladder drained of approximately 100 mL of clear kobe urine. The anterior lip of the cervix was grasped with a single-tooth tenaculum and the uterus sounded to approximately 8 cm as noted above. Serial dilation was carried out to admit a diagnostic hysteroscope which was placed into the endometrial cavity which was distended using sorbitol. The findings are as noted above with a relatively large polypoid-appearing structure originating in the right fundal region of the uterus. The bilateral tubal ostia were seen. The remainder of the endometrium appeared entirely atrophic. The hysteroscope was removed and set aside and a small sharp curette placed in the in vitro cavity. Thorough and circumferential curettage was carried out which failed to produce any tissue of any significance onto a Telfa in the vagina. It was set aside in favor of a polyp forceps which was introduced and attention focused on the right anterior fundal region where the polyp was located and removed in a number of fragments, some quite large onto the Telfa in the vagina. After was felt that the polyp had been entirely removed, the sharp curet was reintroduced into the endometrial cavity and thorough and circumferential curettage carried out again demonstrating only the typical gritty texture. All instrumentation was then removed. Estimated blood loss was less than 5 mL. There were no complications. All sponge, instrument, and needle counts were correct. The patient tolerated the procedure well and proceeded to the recovery room in stable condition.
[2019-08-19 09:18] VITALS: TEMP 97.6
[2019-08-19 09:32] VITALS: RESP 18
[2019-08-19 10:20] VITALS: BP 105/68; PULSE 90
== END 2019-08-19 10:34 | disposition home or self-care (01) ==
LOC: OR 07:33
PROVIDERS: ATTEND Obstetrics & Gynecology
DX: N84.0 Polyp of corpus uteri (principal); N88.2 Stricture and stenosis of cervix uteri; E11.9 Type 2 diabetes mellitus without complications; R94.31 Abnormal electrocardiogram [ECG] [EKG]; I10 Essential (primary) hypertension; G56.00 Carpal tunnel syndrome, unspecified upper limb; M10.9 Gout, unspecified; E78.5 Hyperlipidemia, unspecified; M77.9 Enthesopathy, unspecified; G47.33 Obstructive sleep apnea (adult) (pediatric); M10.00 Idiopathic gout, unspecified site; F41.9 Anxiety disorder, unspecified; E66.9 Obesity, unspecified; Z68.34 Body mass index [BMI] 34.0-34.9, adult; Z88.2 Allergy status to sulfonamides; Z98.890 Other specified postprocedural states; Z96.651 Presence of right artificial knee joint; Z87.891 Personal history of nicotine dependence; Z79.899 Other long term (current) drug therapy; Z79.82 Long term (current) use of aspirin; Z91.89 Other specified personal risk factors, not elsewhere classified
CPT/HCPCS: 88305; 58558; J2250; J1100; J2405; J2001; J2704

== ENCOUNTER → 2022-07-19 | Outpatient (CLI) | payer MEDICARE ==
--- NOTE | 2022-07-19 11:11 | MM ---
Reason for Exam: Clinical finding. Last mammogram was performed 8 year(s) and 11 month(s) ago. Indicated Problems: Pain. Patient History: Menarche at age 15. First Full-Term at age 20. Postmenopausal. Patient used Estrogen for 9 years. Risk Values: Yue 5 year model risk: 1.2%. NCI Lifetime model risk: 2.5%. Prior Study Comparison: 05/06/1994 Screening Mammogram, [facility]. 02/14/2001 Bilateral Screening Mammogram, [facility]. 04/11/2002 Bilateral Screening Mammogram, [facility]. 04/13/2003 Bilateral Screening Mammogram, [facility]. 04/14/2004 Bilateral Screening Mammogram, [facility]. 01/17/2006 Bilateral Screening Mammogram, [facility]. 04/28/2011 Bilateral Screening Mammogram, [facility]. 08/22/2013 Bilateral Screening Mammogram, [facility]. Tissue Density: The breast tissue is heterogeneously dense. This may lower the sensitivity of mammography. Findings: Analyzed By CAD. Scattered benign calcifications. No mass or distortion seen. Overall Assessment: Benign, BI-RAD 2 Management: Screening Mammogram of both breasts in 1 year. A clinical breast exam by your physician is recommended on an annual basis and results should be correlated with mammographic findings. This exam should not preclude additional follow-up of suspicious palpable abnormalities. Results were given to the patient verbally at the time of exam. Electronically signed and approved by: Alfredito Ku M.D. Radiologis
== END | disposition home or self-care (01) ==
LOC: RADMAMWWP 10:36
PROVIDERS: ATTEND Internal Medicine
DX: N64.4 Mastodynia (principal); Z78.0 Asymptomatic menopausal state
CPT/HCPCS: 77066; G0279; 77062

== ENCOUNTER → 2024-02-26 | Outpatient (CLI) | payer MEDICARE ==
--- NOTE | 2024-02-26 10:42 | XR ---
EXAMINATION TYPE: XR chest 2V DATE OF EXAM: 02/26/2024 COMPARISON: 02/20/2018 HISTORY: Shortness of breath TECHNIQUE: Frontal and lateral views of the chest are obtained. FINDINGS: Scattered senescent parenchymal changes noted. Hyperinflation compatible with COPD. No evidence for infiltrate. No evidence for atelectasis. Heart size is stable. Mediastinal structures are stable and grossly unremarkable. No evidence for hilar prominence. Degenerative changes dorsal spine. IMPRESSION: 1. No evidence for acute pulmonary disease.
--- NOTE | 2024-02-26 14:47 | US ---
EXAMINATION TYPE: US abdomen complete DATE OF EXAM: 02/26/2024 COMPARISON: NONE CLINICAL INDICATION: Female, 78 years old with history of R10 ABD PAIN, [id number] SOB; pain TECHNIQUE: Multiple sonographic images of the abdomen are obtained. FINDINGS: EXAM MEASUREMENTS: Liver Length: 14.8 cm Gallbladder Wall: .2 cm CBD: .5 cm Spleen: 12.4 cm Right Kidney: 10.2 x 3.8 x 4.6 cm Left Kidney: 11.3 x 5.3 x 4.4 cm PIECE HAND NOTES: Pancreas: Obscured by bowel gas Liver: Increased attenuation cystic area seen 3.4 x 2.5 x 3.7 cm. Gallbladder: wnl Evidence for sonographic Hillman's sign: No CBD: wnl Spleen: wnl Right Kidney: No hydronephrosis or masses seen Left Kidney: No hydronephrosis or masses seen Upper IVC: wnl Abd Aorta: wnl IMPRESSION: Stable benign-appearing hepatic cyst.
== END | disposition home or self-care (01) ==
LOC: RADUSWWP 09:37
PROVIDERS: ATTEND Internal Medicine
DX: R10.84 Generalized abdominal pain (principal); J44.9 Chronic obstructive pulmonary disease, unspecified; K76.89 Other specified diseases of liver
CPT/HCPCS: 71046; 76700

== ENCOUNTER 2024-02-27 09:55 | Emergency (ER) | payer MEDICARE ==
[2024-02-27 10:01] VITALS: TEMP 98.1
[2024-02-27 10:24] VITALS: RESP 18
--- NOTE | 2024-02-27 10:34 | ED ---
General Adult HPI - General Chief complaint: Anxiety Stated complaint: Covid+/wants BP checked Time Seen by Provider: 02/27/24 10:07 Source: patient, family, RN notes reviewed Mode of arrival: wheelchair Limitations: no limitations - History of Present Illness Initial comments: 78-year female presented to ER with a chief complaint of anxiety. Patient s tates she tested positive for COVID-19 approximately 7 days ago. She states she is still feeling sick with a headache, runny nose. Denies any fevers or chills. Denies any cough. Patient has been following up with Dr. Hi. She states last night she started to what she believes was a panic attack as she has an extensive history of anxiety. She felt extremely anxious and like she was "crawling out of her skin". She denies any chest pain, palpitations, shortness of breath, abdominal pain, constipation/diarrhea or peripheral edema. Patient took a Xanax approximately 2 hours prior to arrival. Patient states her anxiety has since subsided. - Related Data Home Medications Medication Instructions Recorded Confirmed Simvastatin [Zocor] 20 mg PO Q48H 12/20/16 08/11/19 lisinopriL [Zestril] 10 mg PO QAM 12/20/16 08/11/19 Vitamin E 400 unit PO DAILY 02/20/18 08/11/19 Vitamin B Complex 1 cap PO DAILY 07/29/18 08/11/19 allopurinoL [Zyloprim] 300 mg PO DAILY 08/11/19 08/11/19 Previous Rx's Medication Instructions Recorded ALPRAZolam [Xanax] 0.25 mg PO TID PRN #9 tab 08/08/18 Acetaminophen Tab [Tylenol Tab] 650 mg PO Q6H #30 tablet 08/09/18 Aspirin 325 mg PO DAILY #30 tab 08/09/18 Allergies Allergy/AdvReac Type Severity Reaction Status Date / Time Sulfa (Sulfonamide Allergy Rash/Hives Verified 02/27/24 10:01 Antibiotics) Review of Systems ROS Statement: Those systems with pertinent positive or pertinent negative responses have been documented in the HPI. ROS Other: All systems not noted in ROS Statement are negative. Past Medical History Past Medical History: Hyperlipidemia, Hypertension, Osteoarthritis (OA), Rheumatoid Arthritis (RA) Additional Past Medical History / Comment(s): palpitations, recent fall, recent "bad stress test", SOB, elevated liver enzymes, high uric acid, high triglycerides, EC at [facility] 02/20/18 with "chest spasms" History of Any Multi-Drug Resistant Organisms: None Reported Past Surgical History: Orthopedic Surgery, Tonsillectomy Additional Past Surgical History / Comment(s): right knee replacement Past Anesthesia/Blood Transfusion Reactions: No Reported Reaction Past Psychological History: Anxiety Smoking Status: Never smoker Past Alcohol Use History: Occasional Past Drug Use History: Marijuana - Past Family History Mother Family Medical History: No Reported History Father Family Medical History: Cancer General Exam Limitations: no limitations General appearance: alert, in no apparent distress ENT exam: Present: normal exam, normal oropharynx, mucous membranes moist, TM's normal bilaterally Neck exam: Present: normal inspection. Absent: tenderness, meningismus, lymphadenopathy Respiratory exam: Present: normal lung sounds bilaterally. Absent: respiratory distress, wheezes, rales, rhonchi, stridor Cardiovascular Exam: Present: regular rate, normal rhythm, normal heart sounds. Absent: systolic murmur, diastolic murmur, rubs, gallop, clicks Extremities exam: Present: normal inspection, full ROM, normal capillary refill. Absent: tenderness, pedal edema, joint swelling, calf tenderness Neurological exam: Present: alert, oriented X3, CN II-XII intact Skin exam: Present: warm, dry, intact, normal color. Absent: rash Course Vital Signs 02/27/24 02/27/24 02/27/24 09:58 10:21 11:49 Temperature 98.1 F Pulse Rate 65 61 Respiratory 20 18 18 Rate Blood Pressure 158/76 132/75 O2 Sat by Pulse 96 96 Oximetry EKG Findings - EKG Comments: EKG Findings:: EKG taken at 10: 36 showing a sinus rhythm. No acute ST segment or T wave abnormalities. Artifact present inferior leads. Ventricular rate 65, DE interval 182, QRS duration 1 5, QT/QTc 418/429. Medical Decision Making - Medical Decision Making Was pt. sent in by a medical professional or institution (, PA, DIESEL ENGINE [employer] PIPE FITTER, urgent care, hospital, or long-term...) When possible be specific @ -No Did you speak to anyone other than the patient for history (EMS, parent, family, police, friend...)? What history was obtained from this source @ -, at bedside, aiding in HPI and past medical history. Did you review nursing and triage notes (agree or disagree)? Why? @ -I reviewed and agree with nursing and triage notes Were old charts reviewed (outside hosp., previous admission, EMS record, old EKG, old radiological studies, urgent care reports/EKG's, long-term records)? Report findings @ -No old charts were reviewed Differential Diagnosis (chest pain, altered mental status, abdominal pain women, abdominal pain men, vaginal bleeding, weakness, fever, dyspnea, syncope, headache, dizziness, GI bleed, back pain, seizure, CVA, palpatations, mental health, musculoskeletal)? @ -Differential Mental Health: Depression, anxiety, bipolar, psychosis, schizophrenia, borderline personality, situational depression, adjustment disorder, behavioral disorder, brain tumor, malingering, substance abuse, encephalopathy, medication reaction, dementia, hypothyroidism, degenerative neurologic disorder, lupus.... This is not meant to be all-inclusive list EKG interpreted by me (3pts min.). @ -As above X-rays interpreted by me (1pt min.). @ -None done CT interpreted by me (1pt min.). @ -None done U/S interpreted by me (1pt. min.). @ -None done What testing was considered but not performed or refused? (CT, X-rays, U/S, labs)? Why? @ -None What meds were considered but not given or refused? Why? @ -None Did you discuss the management of the patient with other professionals (professionals i.e. , PA, DIESEL ENGINE [employer] PIPE FITTER, lab, RT, psych nurse, oncology social work, band maker, teacher, sales promotion officer, case aide)? Give summary @ -No Was smoking cessation discussed for >3mins.? @ -No Was critical care preformed (if so, how long)? @ -No Were there social determinants of health that impacted care today? How? (Homelessness, low income, unemployed, alcoholism, drug addiction, transportation, low edu. Level, literacy, decrease access to med. care, fpc, rehab)? @ -No Was there de-escalation of care discussed even if they declined (Discuss DNR or withdrawal of care, Hospice)? DNR status @ -No What co-morbidities impacted this encounter? (DM, HTN, Smoking, COPD, CAD, Cancer, CVA, ARF, Chemo, Hep., AIDS, mental health diagnosis, sleep apnea, morbid obesity)? @ -Atrial fibrillation, anxiety Was patient admitted / discharged? Hospital course, mention meds given and route, prescriptions, significant lab abnormalities, going to OR and other pertinent info. @ -Discharge. 78-year-old female presented to the ER with a chief complaint of anxiety. History and physical exam completed. Vitals within normal limits. Upon evaluation patient reporting improvement of anxiety after Xanax prior to arrival. Patient in no signs of acute distress but is mildly anxious on exam. Exam unremarkable. Laboratory studies obtained unremarkable. EKG showing a sinus rhythm no acute evidence of infarct or ischemia. Symptoms believed to be anxiety in nature. Upon reevaluation, patient eager for discharge and reporting improvement of symptoms. Strict return parameters discussed. Patient discharged in stable condition with follow-up to PCP. Patient verbally expressed understanding agree with care plan. Case discussed with the attending, Dr. Ross. Undiagnosed new problem with uncertain prognosis? @ -No Drug Therapy requiring intensive monitoring for toxicity (Heparin, Nitro, Insulin, Cardizem)? @ -No Were any procedures done? @ -No Diagnosis/symptom? @ -Anxiety/viral illness Acute, or Chronic, or Acute on Chronic? @ -Acute Uncomplicated (without systemic symptoms) or Complicated (systemic symptoms)? @ -Uncomplicated Side effects of treatment? @ -No Exacerbation, Progression, or Severe Exacerbation? @ -No Poses a threat to life or bodily function? How? (Chest pain, USA, CA, pneumonia, PE, COPD, DKA, ARF, appy, cholecystitis, CVA, Diverticulitis, Homicidal, Suicidal, threat to staff... and all critical care pts) @ -No - Lab Data Result diagrams: 02/27/24 10:48 02/27/24 10:48 Lab Results 02/27/24 02/27/24 Range/Units 10:48 10:48 WBC 3.9 (3.8-10.6) k/uL RBC 3.95 (3.80-5.40) m/uL Hgb 13.3 (11.4-16.0) gm/dL Hct 38.8 (34.0-46.0) % MCV 98.3 (80.0-100.0) fL MCH 33.6 (25.0-35.0) pg MCHC 34.2 (31.0-37.0) g/dL RDW 13.2 (11.5-15.5) % Plt Count 227 (150-450) k/uL MPV 7.0 Neutrophils % 53 % Lymphocytes % 32 % Monocytes % 8 % Eosinophils % 2 % Basophils % 1 % Neutrophils # 2.1 (1.3-7.7) k/uL Lymphocytes # 1.2 (1.0-4.8) k/uL Monocytes # 0.3 (0-1.0) k/uL Eosinophils # 0.1 (0-0.7) k/uL Basophils # 0.0 (0-0.2) k/uL Sodium 132 L (137-145) mmol/L Potassium 4.0 (3.5-5.1) mmol/L Chloride 97 L (98-107) mmol/L Carbon Dioxide 26 (22-30) mmol/L Anion Gap 9 mmol/L BUN 14 (7-17) mg/dL Creatinine 0.62 (0.52-1.04) mg/dL Est GFR (CKD-EPI)AfAm >90 (>60 ml/min/1.73 sqM) Est GFR (CKD-EPI)NonAf 87 (>60 ml/min/1.73 sqM) Glucose 130 H (74-99) mg/dL Calcium 10.0 (8.4-10.2) mg/dL Total Bilirubin 0.6 (0.2-1.3) mg/dL AST 25 (14-36) U/L ALT 21 (4-34) U/L Alkaline Phosphatase 42 (38-126) U/L Total Protein 7.4 (6.3-8.2) g/dL Albumin 4.3 (3.5-5.0) g/dL Disposition Clinical Impression: Acute anxiety, Viral illness Disposition: HOME SELF-CARE Condition: Stable Instructions (If sedation given, give patient instructions): Generalized Anxiety Disorder (ED) Additional Instructions: Please follow-up with Dr. Hi in the next 1 to 2 days. Return to the ER for any new or worsening concerns. Is patient prescribed a controlled substance at d/c from ED?: No Referrals: Phillip Hi MD [Primary Care Provider] - 1-2 days Time of Disposition: 11:43
[2024-02-27 11:18] LABS: Basophils % (A) 1 %; Eosinophils # (A) 0.1 k/uL (0-0.7); Eosinophils % (A) 2 %; HCT 38.8 % (34.0-46.0); HGB 13.3 gm/dL (11.4-16.0); Lymphocytes # (A) 1.2 k/uL (1.0-4.8); Lymphocytes % (A) 32 %; MCH 33.6 pg (25.0-35.0); MCHC 34.2 g/dL (31.0-37.0); MCV 98.3 fL (80.0-100.0); Monocytes # (A) 0.3 k/uL (0-1.0); Monocytes % (A) 8 %; Neutrophils # (A) 2.1 k/uL (1.3-7.7); Neutrophils % (A) 53 %; Platelet Count 227 k/uL (150-450); RBC 3.95 m/uL (3.80-5.40); RDW 13.2 % (11.5-15.5); WBC 3.9 k/uL (3.8-10.6)
[2024-02-27 11:30] LABS: ALT 21 U/L (4-34); AST 25 U/L (14-36); African American GFR (CKD) >90 (>60 ml/min/1.73 sqM); Albumin 4.3 g/dL (3.5-5.0); Alkaline Phosphatase 42 U/L (38-126); Anion Gap 9 mmol/L; Blood Urea Nitrogen 14 mg/dL (7-17); Carbon Dioxide 26 mmol/L (22-30); Chloride 97 mmol/L (98-107); Glucose 130 mg/dL (74-99); Non-African American GFR(CKD) 87 (>60 ml/min/1.73 sqM); Sodium 132 mmol/L (137-145); Total Bilirubin 0.6 mg/dL (0.2-1.3); Total Protein 7.4 g/dL (6.3-8.2)
[2024-02-27 11:50] VITALS: BP 132/75; PULSE 61
== END 2024-02-27 11:51 | disposition home or self-care (01) ==
LOC: EC 09:55
CPT/HCPCS: 36415; 80053; 85025; 93005; 99283